=== PATIENT | female | born 1955 | race Caucasian/White ===

== ENCOUNTER 2022-05-07 13:39 | Outpatient (CLI) | payer MEDICARE, SELFPAY | END 2022-05-07 13:40 | disposition home or self-care (01) | PROVIDERS: PCP Physician Assistant Medical; Visit Provider Internal Medicine | DX: I35.1 Nonrheumatic aortic (valve) insufficiency (principal); I34.0 Nonrheumatic mitral (valve) insufficiency | CPT/HCPCS: 93306 ==

== ENCOUNTER 2022-05-23 08:02 | Outpatient (CLI) | payer MEDICARE, SELFPAY | END 2022-05-23 08:03 | disposition home or self-care (01) | LOC: NFLDREF 05-30 09:32 | PROVIDERS: PCP Physician Assistant Medical; Referring Provider Physician Assistant Medical; Visit Provider Physician Assistant Medical | DX: Z00.00 Encounter for general adult medical examination without abnormal findings (principal); E78.5 Hyperlipidemia, unspecified; E04.1 Nontoxic single thyroid nodule; D75.839 Thrombocytosis, unspecified; F41.9 Anxiety disorder, unspecified | CPT/HCPCS: 80053; 80061 ==

== ENCOUNTER 2022-05-26 10:34 | Outpatient (CLI) | payer MEDICARE, SELFPAY ==
--- NOTE | 2022-06-02 15:54 | ONC.NURNOTE ---
Hematology referral received from Monica Torres PA-C Collecting lab results as ordered by Monica Torres, and will review with Dr. Mary Leach, [facility], later this week. Ms. Villa will be scheduled after review. Ms. Villa was contacted, introduced to the hematology oncology service by [facility] and is aware of this plan.
== END 2022-05-26 10:35 | disposition home or self-care (01) ==
PROVIDERS: PCP Physician Assistant Medical; Visit Provider Physician Assistant Medical
DX: Z00.00 Encounter for general adult medical examination without abnormal findings (principal); E04.1 Nontoxic single thyroid nodule; E78.5 Hyperlipidemia, unspecified; D75.839 Thrombocytosis, unspecified; F41.9 Anxiety disorder, unspecified
CPT/HCPCS: 82306; 84443

== ENCOUNTER 2022-06-04 14:16 | Outpatient (CLI) | payer MEDICARE, SELFPAY ==
--- NOTE | 2022-06-04 14:30 | CRLHL7_ITS ---
For Patients: As a result of the Century Cures Act, medical imaging exams and procedure reports are released immediately into your electronic medical record. You may view this report before your referring provider. If you have questions, please contact your health care provider. DXA BONE MINERAL DENSITY STUDY Reason for exam: Postmenopausal. Current height (in): 67. Weight (lb): 114. Menopause age: 49. Ethnicity: White. 1. Have you had a previous hip or vertebral fracture? No. 2. Have you had any fractures during your adult life which did not result from significant trauma (e.g., auto accident)? No. 3. Did either of your parents have a hip fracture? No. 4. Do you smoke? No. 5. Have you ever taken Glucocorticoids? No. 6. Do you have rheumatoid arthritis? No. 7. Do you have secondary osteoporosis? No. 8. Do you drink 3 or more alcoholic drinks per day? No. 9. Are you being treated for osteoporosis? No. 10. Have you ever taken any of the following medications: Actonel, Evista, Fosamax, Miacalcin, Reclast, Boniva, Forteo, HRT (i.e. estrogen/hormone therapy), Protelos, Prolia, Vitamin D, Calcium, other ??? please specify. ANSWER: Yes, vitamin D, calcium. 11. Do you have any of the following medical conditions: Anorexia or bulimia, asthma or emphysema, end stage renal disease, hyperparathyroidism, any seizure disorders, cancer, inflammatory bowel diseases, hysterectomy, other ??? please specify. ANSWER: No. 12. What was your maximum height (inches)? 67. 13. Do you perform weight bearing exercise regularly? No. 14. Do you regularly consume dairy products? Yes. 15. Do you drink caffeinated beverages? Yes. 16. At what age did your period start? 14. 17. Are you premenopausal? No. 18. How many full term pregnancies have you had? 1 19. Have you ever missed your period for more than 6 months in a row (not including or menopause)? No. TECHNIQUE: Bone mineral density study was performed using the [employer]. FINDINGS: The results of the study expressed as bone mineral density (BMD) are as follows: Lumbar spine L1 to L4: BMD: 0.713 g/cm2. T-score: -3.0. Z-score: -1.1. Neck Left: BMD: 0.544 g/cm2. T-score: -2.7. Z-score: -1.1. Right: BMD: 0.574 g/cm2. T-score: -2.5. Z-score: -0.8. Total Left: BMD: 0.572 g/cm2. T-score: -3.0. Z-score: -1.7. Right: BMD: 0.639 g/cm2. T-score: -2.5. Z-score: -1.1 IMPRESSION: Osteoporosis. *Comparison exams done prior to 08/2019 were performed on different unit, [employer]. COMPARISON: Compared with scan of 04/25/2020, the bone mineral density has decreased by 0.8 percent at the spine and decreased by 1.5 percent at the hip. Ernie Solitario M.D. Diagnostic Radiologist [email or web address] VILMA/Dictated by: Ernie Solitario MD @ 06/06/2022 9:59:00 AM (Electronically Signed)
== END 2022-06-04 14:17 | disposition home or self-care (01) ==
LOC: RAD 14:17
PROVIDERS: PCP Physician Assistant Medical; Visit Provider Physician Assistant Medical
DX: Z78.0 Asymptomatic menopausal state (principal); M81.0 Age-related osteoporosis without current pathological fracture
CPT/HCPCS: 77080

== ENCOUNTER 2022-07-08 06:23 | Outpatient (CLI) | payer MEDICARE, SELFPAY ==
[2022-07-08 06:41] VITALS: BMI 17.5
[2022-07-08 06:48] VITALS: BP 117/65; PULSE 68; RESP 16; TEMP 36.2; O2SAT 98
[2022-07-08 07:18] LABS: Basophils Absolute Auto 0.04 K/uL (0.00-0.30); Basophils Percent Auto 0.7 % (0.0-3.0); Eosinophils Absolute Auto 0.11 K/uL (0.00-0.50); Eosinophils Percent Auto 1.9 % (0.0-7.0); Hematocrit 45.7 % (33.0-51.0); Hemoglobin* 15.2 gm/dL (12.0-16.0); Immature Granulocytes Abs Auto 0.18 K/uL (0.00-0.30); Immature Granulocytes Pct Auto 3.1 %; Immature Reticulocyte Fraction 8.5 % (3.0-15.9); Lymphocytes Percent Auto 19.9 % (20-44); Mean Corpuscular HGB Conc 33 gm/dL (32-36); Mean Corpuscular Hemoglobin 29 pg (26-34); Mean Corpuscular Volume 88 fL (80-100); Neutrophils Absolute Auto 3.87 K/uL (1.7-7.0); Neutrophils Percent Auto 67.4 % (42.0-72.0); Platelet Count* 546 K/uL (140-440); Red Blood Count 5.18 m/uL (4.00-5.20); Reticulocyte Hemoglobin Equivi 28.4 pg (29.0-35.0); Reticulocyte Percent 1.3 % (0.5-2.0); Reticulocytes Absolute 0.07 # (0.03-0.08); White Blood Count* 5.74 K/uL (4.50-11.00)
[2022-07-08 07:34] LABS: SARS PCR* Negative SARS-CoV-2 (Negative)
--- NOTE | 2022-07-08 07:55 | W.ANESCHARGE ---
Anesthesia Charges Start Date/Time Anesthesia Start Date: 07/08/22 Anesthesia Start Time: 07:33 Stop Date/Time Anesthesia Stop Date: 07/08/22 Anesthesia Stop Time: 07:56
[2022-07-08 07:56] VITALS: BP 111/67; PULSE 70; RESP 16; O2SAT 98
--- NOTE | 2022-07-08 07:58 | W.ANESCHARGE ---
Anesthesia Charges Start Date/Time Anesthesia Start Date: 07/08/22 Anesthesia Start Time: 07:33 Stop Date/Time Anesthesia Stop Date: 07/08/22 Anesthesia Stop Time: 07:56
[2022-07-08 08:06] VITALS: BP 116/73; PULSE 70; RESP 16; O2SAT 98
[2022-07-08 08:16] VITALS: BP 124/70; PULSE 72; RESP 16; O2SAT 100
[2022-07-08 08:39] LABS: Slide Review Reflex Yes
[2022-07-09 12:35] LABS: Slide Review Acceptable Review (Acceptable)
== END 2022-07-08 08:36 | disposition home or self-care (01) ==
LOC: OP CLINIC 06:23
PROVIDERS: PCP Physician Assistant Medical; Visit Provider Internal Medicine Hematology & Oncology
DX: D75.839 Thrombocytosis, unspecified (principal)
CPT/HCPCS: 1112; 36415; 38222; 85025; 85045; 87426; 87635; 88237; 88264; 88305; 88311; 88313; 88360; J1644; J2001; J2704

== ENCOUNTER 2022-10-14 11:00 | Outpatient (RCR) | payer MEDICARE, SELFPAY ==
--- NOTE | 2022-06-27 14:56 | ONC.NURNOTE ---
bone marrow biopsy order faxed to endo and lab.
[2022-07-02 22:39] LABS: Qual BCR Result Not Detected; Qual BCR Source Whole Blood
[2022-07-14 10:10] LABS: Chloride* 104 mmol/L (96-114)
[2022-07-14 10:11] LABS: Potassium* 4.7 mmol/L (3.6-5.1); Sodium* 139 mmol/L (135-149)
[2022-07-14 10:13] LABS: Alkaline Phosphatase* 40 U/L (40-150); Aspartate Amino Transferase* 24 U/L (12-35); Bilirubin Total* 0.9 mg/dL (0.1-1.5); Blood Urea Nitrogen* 17 mg/dL (7-30); Carbon Dioxide* 27 mmol/L (20-32); Creatinine* 0.6 mg/dL (0.5-1.5); Est. Creatinine Clearance* 44.38; Estimated Glomerular Filt Rate 98 ml/min; Glucose* 83 mg/dL (60-115)
[2022-07-14 10:14] LABS: Alanine Aminotransferase* 19 U/L (4-35); Basophils Absolute Auto 0.04 K/uL (0.00-0.30); Basophils Percent Auto 0.6 % (0.0-3.0); Calcium* 9.6 mg/dL (8.4-10.6); Eosinophils Absolute Auto 0.09 K/uL (0.00-0.50); Eosinophils Percent Auto 1.2 % (0.0-7.0); Hematocrit 47.4 % (33.0-51.0); Hemoglobin* 15.7 gm/dL (12.0-16.0); Immature Granulocytes Abs Auto 0.18 K/uL (0.00-0.30); Immature Granulocytes Pct Auto 2.5 %; Lactate Dehydrogenase* 165 U/L (120-246); Lymphocytes Percent Auto 16.6 % (20-44); Mean Corpuscular HGB Conc 33 gm/dL (32-36); Mean Corpuscular Hemoglobin 29 pg (26-34); Mean Corpuscular Volume 88 fL (80-100); Neutrophils Absolute Auto 5.13 K/uL (1.7-7.0); Neutrophils Percent Auto 71.1 % (42.0-72.0); Platelet Count* 546 K/uL (140-440); RDW Coefficient of Variation % 12.9 % (11.5-15.5); Red Blood Count 5.37 m/uL (4.00-5.20); White Blood Count* 7.22 K/uL (4.50-11.00)
[2022-07-14 10:15] LABS: Slide Review Reflex No
[2022-08-12 12:24] LABS: Basophils Absolute Auto 0.06 K/uL (0.00-0.30); Eosinophils Percent Auto 1.7 % (0.0-7.0); Hematocrit 47.7 % (33.0-51.0); Hemoglobin* 15.9 gm/dL (12.0-16.0); Immature Granulocytes Abs Auto 0.09 K/uL (0.00-0.30); Immature Granulocytes Pct Auto 1.5 %; Mean Corpuscular HGB Conc 33 gm/dL (32-36); Mean Corpuscular Hemoglobin 30 pg (26-34); Mean Corpuscular Volume 91 fL (80-100); Monocytes Percent Auto 7.6 % (0.0-11.0); Neutrophils Absolute Auto 4.18 K/uL (1.7-7.0); Neutrophils Percent Auto 69.2 % (42.0-72.0); Platelet Count* 434 K/uL (140-440); RDW Coefficient of Variation % 14.5 % (11.5-15.5); Red Blood Count 5.26 m/uL (4.00-5.20); White Blood Count* 6.04 K/uL (4.50-11.00)
[2022-08-12 12:51] LABS: Slide Review Reflex No
[2022-10-14 10:27] LABS: Basophils Absolute Auto 0.04 K/uL (0.00-0.30); Basophils Percent Auto 0.8 % (0.0-3.0); Eosinophils Absolute Auto 0.07 K/uL (0.00-0.50); Eosinophils Percent Auto 1.4 % (0.0-7.0); Hemoglobin* 15.4 gm/dL (12.0-16.0); Immature Granulocytes Abs Auto 0.07 K/uL (0.00-0.30); Immature Granulocytes Pct Auto 1.4 %; Lymphocytes Absolute Auto 0.99 K/uL (0.90-2.90); Lymphocytes Percent Auto 20.5 % (20-44); Mean Corpuscular HGB Conc 34 gm/dL (32-36); Mean Corpuscular Hemoglobin 32 pg (26-34); Mean Corpuscular Volume 95 fL (80-100); Monocytes Percent Auto 7.5 % (0.0-11.0); Neutrophils Percent Auto 68.4 % (42.0-72.0); Platelet Count* 340 K/uL (140-440); Red Blood Count 4.85 m/uL (4.00-5.20); White Blood Count* 4.83 K/uL (4.50-11.00)
[2022-10-14 10:28] LABS: Slide Review Reflex No
[2022-10-14 10:55] LABS: Albumin* 4.7 g/dL (3.3-5.0); Chloride* 103 mmol/L (96-114); Sodium* 139 mmol/L (135-149)
[2022-10-14 10:57] LABS: Creatinine* 0.6 mg/dL (0.5-1.5); Est. Creatinine Clearance* 44.38; Estimated Glomerular Filt Rate 98 ml/min
[2022-10-14 10:58] LABS: Alanine Aminotransferase* 20 U/L (4-35); Alkaline Phosphatase* 34 U/L (40-150); Aspartate Amino Transferase* 27 U/L (12-35); Bilirubin Total* 0.7 mg/dL (0.1-1.5); Blood Urea Nitrogen* 14 mg/dL (7-30); Calcium* 9.1 mg/dL (8.4-10.6); Carbon Dioxide* 27 mmol/L (20-32); Glucose* 104 mg/dL (60-115); Lactate Dehydrogenase* 135 U/L (120-246); Total Protein* 7.5 g/dL (6.0-8.3)
== END 2022-12-21 23:59 | disposition home or self-care (01) ==
LOC: CCIC 11:00
PROVIDERS: PCP Physician Assistant Medical; Referring Provider Physician Assistant Medical; Visit Provider Internal Medicine Hematology & Oncology
DX: D47.3 Essential (hemorrhagic) thrombocythemia (principal)
CPT/HCPCS: 36415; 80053; 83615; 85025; 99202; 99204; 99205; 99212; 99213; 99214; 99215

== ENCOUNTER 2023-04-13 13:00 | Outpatient (RCR) | payer MEDICARE, SELFPAY ==
[2023-01-13 10:09] LABS: Basophils Absolute Auto 0.05 K/uL (0.00-0.30); Basophils Percent Auto 0.9 % (0.0-3.0); Eosinophils Absolute Auto 0.09 K/uL (0.00-0.50); Eosinophils Percent Auto 1.6 % (0.0-7.0); Hematocrit 47.5 % (33.0-51.0); Hemoglobin* 15.7 gm/dL (12.0-16.0); Immature Granulocytes Abs Auto 0.07 K/uL (0.00-0.30); Immature Granulocytes Pct Auto 1.3 %; Lymphocytes Absolute Auto 1.23 K/uL (0.90-2.90); Lymphocytes Percent Auto 22.2 % (20-44); Mean Corpuscular HGB Conc 33 gm/dL (32-36); Mean Corpuscular Hemoglobin 33 pg (26-34); Mean Corpuscular Volume 98 fL (80-100); Monocytes Percent Auto 6.9 % (0.0-11.0); Neutrophils Absolute Auto 3.72 K/uL (1.7-7.0); Neutrophils Percent Auto 67.1 % (42.0-72.0); Platelet Count* 363 K/uL (140-440); RDW Coefficient of Variation % 11.9 % (11.5-15.5); Red Blood Count 4.83 m/uL (4.00-5.20); White Blood Count* 5.54 K/uL (4.50-11.00)
[2023-01-13 10:25] LABS: Slide Review Reflex No
[2023-01-13 10:37] LABS: Chloride* 103 mmol/L (96-114)
[2023-01-13 10:38] LABS: Albumin* 4.9 g/dL (3.3-5.0); Potassium* 4.5 mmol/L (3.6-5.1); Sodium* 140 mmol/L (135-149)
[2023-01-13 10:40] LABS: Anion Gap 9 mEq/L (7-15); Aspartate Amino Transferase* 31 U/L (12-35); Bilirubin Total* 0.7 mg/dL (0.1-1.5); Carbon Dioxide* 28 mmol/L (20-32); Creatinine* 0.6 mg/dL (0.5-1.5); Estimated Glomerular Filt Rate 98 ml/min; Total Protein* 7.9 g/dL (6.0-8.3)
[2023-01-13 10:41] LABS: Alanine Aminotransferase* 17 U/L (4-35); Alkaline Phosphatase* 33 U/L (40-150); Blood Urea Nitrogen* 12 mg/dL (7-30); Calcium* 9.6 mg/dL (8.4-10.6); Glucose* 98 mg/dL (60-115)
--- NOTE | 2023-01-16 11:51 | ONC.NURNOTE ---
Message left on patient's voicemail that Dr. amaya reviewed labs and they are stable so no change in Hydrea. Patient also told she will need albs and MD appointment in March
[2023-04-10 08:05] LABS: Basophils Absolute Auto 0.04 K/uL (0.00-0.30); Basophils Percent Auto 0.8 % (0.0-3.0); Eosinophils Absolute Auto 0.07 K/uL (0.00-0.50); Eosinophils Percent Auto 1.4 % (0.0-7.0); Hematocrit 44.9 % (33.0-51.0); Hemoglobin* 14.9 gm/dL (12.0-16.0); Immature Granulocytes Abs Auto 0.08 K/uL (0.00-0.30); Immature Granulocytes Pct Auto 1.7 %; Lymphocytes Percent Auto 28.9 % (20-44); Mean Corpuscular HGB Conc 33 gm/dL (32-36); Mean Corpuscular Hemoglobin 32 pg (26-34); Mean Corpuscular Volume 96 fL (80-100); Monocytes Percent Auto 8.3 % (0.0-11.0); Neutrophils Absolute Auto 2.85 K/uL (1.7-7.0); Neutrophils Percent Auto 58.9 % (42.0-72.0); Platelet Count* 357 K/uL (140-440); Red Blood Count 4.68 m/uL (4.00-5.20); White Blood Count* 4.84 K/uL (4.50-11.00)
[2023-04-10 08:09] LABS: Slide Review Reflex No
[2023-04-10 08:22] LABS: Chloride* 104 mmol/L (96-114); Potassium* 4.3 mmol/L (3.6-5.1); Sodium* 139 mmol/L (135-149)
[2023-04-10 08:24] LABS: Bilirubin Total* 0.9 mg/dL (0.1-1.5); Creatinine* 0.6 mg/dL (0.5-1.5); Estimated Glomerular Filt Rate 98 ml/min
[2023-04-10 08:25] LABS: Alanine Aminotransferase* 21 U/L (4-35); Alkaline Phosphatase* 32 U/L (40-150); Anion Gap 9 mEq/L (7-15); Aspartate Amino Transferase* 26 U/L (12-35); Blood Urea Nitrogen* 12 mg/dL (7-30); Calcium* 9.5 mg/dL (8.4-10.6); Carbon Dioxide* 26 mmol/L (20-32); Glucose* 103 mg/dL (60-115); Lactate Dehydrogenase* 144 U/L (120-246); Total Protein* 7.7 g/dL (6.0-8.3)
--- NOTE | 2023-04-10 10:30 | ONC.NURNOTE ---
called with lab results. will leave for md to see 04/13/23
[2023-04-15 04:29] LABS: Immunoglobulin A 191 mg/dL (68-408); Immunoglobulin G 762 mg/dL (768-1632); Immunoglobulin M 111 mg/dL (35-263)
== END 2023-07-12 23:59 | disposition home or self-care (01) ==
LOC: CCIC 13:00
PROVIDERS: PCP Physician Assistant Medical; Referring Provider Physician Assistant Medical; Visit Provider Internal Medicine Hematology & Oncology
DX: D47.3 Essential (hemorrhagic) thrombocythemia (principal); J18.9 Pneumonia, unspecified organism
CPT/HCPCS: 36415; 80053; 82784; 83615; 85025; 99213; 99214; G0463

== ENCOUNTER 2023-06-12 08:36 | Outpatient (CLI) | payer MEDICARE, SELFPAY | END 2023-06-12 08:37 | disposition home or self-care (01) | LOC: RAD 08:36 | PROVIDERS: PCP Physician Assistant Medical; Visit Provider Internal Medicine Cardiovascular Disease | DX: I35.1 Nonrheumatic aortic (valve) insufficiency (principal); I51.7 Cardiomegaly; I34.0 Nonrheumatic mitral (valve) insufficiency | CPT/HCPCS: 93306 ==

== ENCOUNTER 2023-07-23 09:06 | Outpatient (CLI) | payer MEDICARE, SELFPAY | END 2023-07-23 09:07 | disposition home or self-care (01) | LOC: NFLDREF 07-24 08:58 | PROVIDERS: PCP Physician Assistant Medical; Referring Provider Physician Assistant Medical; Visit Provider Physician Assistant Medical | DX: E78.5 Hyperlipidemia, unspecified (principal); Z79.899 Other long term (current) drug therapy; Z13.29 Encounter for screening for other suspected endocrine disorder; Z13.1 Encounter for screening for diabetes mellitus | CPT/HCPCS: 80061; 82947; 84443 ==

== ENCOUNTER 2023-09-15 13:36 | Outpatient (CLI) | payer MEDICARE, SELFPAY ==
--- NOTE | 2023-09-15 14:00 | CRLHL7_ITS ---
For Patients: As a result of the Century Cures Act, medical imaging exams and procedure reports are released immediately into your electronic medical record. You may view this report before your referring provider. If you have questions, please contact your health care provider. BILATERAL SCREENING MAMMOGRAM WITH COMPUTER-AIDED DETECTION AND TOMOSYNTHESIS TECHNIQUE: CC and MLO views were obtained. These mammographic images have been obtained using full-field digital technique. These mammographic images were interpreted with the benefit of computer-aided detection. Breast tomosynthesis was used in this interpretation. COMPARISON FILM: 08/05/22, 04/09/21, 12/27/19. FINDINGS: The breasts are extremely dense, which lowers the sensitivity of mammography. IMPRESSION: There is no radiographic evidence for malignancy. ASSESSMENT: BI-RADS Category 2: Benign RECOMMENDATION: Routine screening mammogram in 1 year. A lay language report of this examination will be provided to the patient. ERNIE THIBODEAUX M.D. Diagnostic Radiologist [email or web address] Transcribed: 11:[address]/Dictated by: Ernie Thibodeaux MD @ 09/22/2023 9:56:00 AM (Electronically Signed)
== END 2023-09-15 13:37 | disposition home or self-care (01) ==
LOC: MAMMO 13:36
PROVIDERS: PCP Physician Assistant Medical; Visit Provider Physician Assistant Medical
DX: Z12.31 Encounter for screening mammogram for malignant neoplasm of breast (principal); R92.2 Inconclusive mammogram
CPT/HCPCS: 77063; 77067

== ENCOUNTER 2024-01-04 10:00 | Outpatient (RCR) | payer MEDICARE, SELFPAY ==
[2023-07-13 08:57] LABS: Basophils Percent Auto 0.9 % (0.0-3.0); Eosinophils Percent Auto 1.6 % (0.0-7.0); Hematocrit 44.8 % (33.0-51.0); Hemoglobin* 15.1 gm/dL (12.0-16.0); Immature Granulocytes Pct Auto 1.9 %; Lymphocytes Percent Auto 23.8 % (20-44); Mean Corpuscular HGB Conc 34 gm/dL (32-36); Mean Corpuscular Hemoglobin 33 pg (26-34); Mean Corpuscular Volume 98 fL (80-100); Monocytes Percent Auto 7.9 % (0.0-11.0); Neutrophils Percent Auto 63.9 % (42.0-72.0); Platelet Count* 317 K/uL (140-440); RDW Coefficient of Variation % 12.4 % (11.5-15.5); Red Blood Count 4.58 m/uL (4.00-5.20); White Blood Count* 4.32 K/uL (4.50-11.00)
[2023-07-13 08:58] LABS: Slide Review Reflex No
[2023-07-13 09:08] LABS: Albumin* 4.7 g/dL (3.3-5.0)
[2023-07-13 09:09] LABS: Chloride* 107 mmol/L (96-114); Potassium* 4.1 mmol/L (3.6-5.1); Sodium* 139 mmol/L (135-149)
[2023-07-13 09:11] LABS: Anion Gap 2 mEq/L (7-15); Aspartate Amino Transferase* 25 U/L (12-35); Bilirubin Total* 0.7 mg/dL (0.1-1.5); Carbon Dioxide* 30 mmol/L (20-32); Creatinine* 0.6 mg/dL (0.5-1.5); Estimated Glomerular Filt Rate 98 ml/min
[2023-07-13 09:12] LABS: Alanine Aminotransferase* 18 U/L (4-35); Alkaline Phosphatase* 36 U/L (40-150); Blood Urea Nitrogen* 14 mg/dL (7-30); Calcium* 9.3 mg/dL (8.4-10.6); Glucose* 104 mg/dL (60-115); Lactate Dehydrogenase* 138 U/L (120-246); Total Protein* 7.5 g/dL (6.0-8.3)
[2023-10-06 08:24] LABS: Basophils Absolute Auto 0.04 K/uL (0.00-0.30); Basophils Percent Auto 0.8 % (0.0-3.0); Eosinophils Absolute Auto 0.07 K/uL (0.00-0.50); Eosinophils Percent Auto 1.4 % (0.0-7.0); Hematocrit 45.2 % (33.0-51.0); Hemoglobin* 15.3 gm/dL (12.0-16.0); Immature Granulocytes Abs Auto 0.09 K/uL (0.00-0.30); Immature Granulocytes Pct Auto 1.8 %; Lymphocytes Absolute Auto 1.05 K/uL (0.90-2.90); Lymphocytes Percent Auto 21.2 % (20-44); Mean Corpuscular HGB Conc 34 gm/dL (32-36); Mean Corpuscular Hemoglobin 33 pg (26-34); Mean Corpuscular Volume 97 fL (80-100); Monocytes Percent Auto 8.7 % (0.0-11.0); Neutrophils Absolute Auto 3.27 K/uL (1.7-7.0); Neutrophils Percent Auto 66.1 % (42.0-72.0); Platelet Count* 293 K/uL (140-440); Red Blood Count 4.67 m/uL (4.00-5.20); White Blood Count* 4.95 K/uL (4.50-11.00)
[2023-10-06 08:25] LABS: Slide Review Reflex No
[2023-10-06 08:36] LABS: Chloride* 107 mmol/L (96-114); Potassium* 3.7 mmol/L (3.6-5.1); Sodium* 140 mmol/L (135-149)
[2023-10-06 08:39] LABS: Alanine Aminotransferase* 20 U/L (4-35); Alkaline Phosphatase* 39 U/L (40-150); Anion Gap 11 mEq/L (7-15); Aspartate Amino Transferase* 27 U/L (12-35); Blood Urea Nitrogen* 14 mg/dL (7-30); Carbon Dioxide* 22 mmol/L (20-32); Creatinine* 0.6 mg/dL (0.5-1.5); Estimated Glomerular Filt Rate 98 ml/min; Glucose* 99 mg/dL (60-115); Total Protein* 7.7 g/dL (6.0-8.3)
[2023-10-06 08:40] LABS: Calcium* 9.6 mg/dL (8.4-10.6)
[2024-01-04 10:04] LABS: Basophils Percent Auto 1.1 % (0.0-3.0); Eosinophils Percent Auto 1.4 % (0.0-7.0); Hematocrit 46.3 % (33.0-51.0); Hemoglobin* 15.4 gm/dL (12.0-16.0); Immature Granulocytes Pct Auto 1.4 %; Mean Corpuscular HGB Conc 33 gm/dL (32-36); Mean Corpuscular Hemoglobin 33 pg (26-34); Mean Corpuscular Volume 99 fL (80-100); Monocytes Percent Auto 8.1 % (0.0-11.0); Platelet Count* 288 K/uL (140-440); RDW Coefficient of Variation % 12.2 % (11.5-15.5); Red Blood Count 4.68 m/uL (4.00-5.20); White Blood Count* 4.44 K/uL (4.50-11.00)
[2024-01-04 10:08] LABS: Slide Review Reflex No
[2024-01-04 10:18] LABS: Albumin* 5.2 g/dL (3.3-5.0); Chloride* 100 mmol/L (96-114); Potassium* 3.9 mmol/L (3.6-5.1); Sodium* 138 mmol/L (135-149)
[2024-01-04 10:20] LABS: Creatinine* 0.6 mg/dL (0.5-1.5); Estimated Glomerular Filt Rate 97 ml/min
[2024-01-04 10:21] LABS: Alanine Aminotransferase* 17 U/L (4-35); Alkaline Phosphatase* 37 U/L (40-150); Anion Gap 10 mEq/L (7-15); Aspartate Amino Transferase* 24 U/L (12-35); Bilirubin Total* 0.9 mg/dL (0.1-1.5); Blood Urea Nitrogen* 11 mg/dL (7-30); Carbon Dioxide* 28 mmol/L (20-32); Glucose* 105 mg/dL (60-115); Lactate Dehydrogenase* 144 U/L (120-246); Total Protein* 7.8 g/dL (6.0-8.3)
[2024-01-04 10:22] LABS: Calcium* 9.6 mg/dL (8.4-10.6)
== END 2024-01-09 23:59 | disposition home or self-care (01) ==
LOC: CCIC 10:00
PROVIDERS: PCP Physician Assistant Medical; Referring Provider Physician Assistant Medical; Visit Provider Internal Medicine Hematology & Oncology
DX: D47.3 Essential (hemorrhagic) thrombocythemia (principal); Z15.89 Genetic susceptibility to other disease
CPT/HCPCS: 36415; 80053; 83615; 85025; 99213; 99214; G0463

== ENCOUNTER 2024-06-13 08:57 | Outpatient (CLI) | payer MEDICARE, SELFPAY | END 2024-06-13 08:58 | disposition home or self-care (01) | LOC: NFLDREF 06-14 06:36 | PROVIDERS: PCP Physician Assistant Medical; Referring Provider Physician Assistant Medical; Visit Provider Physician Assistant Medical | DX: E78.5 Hyperlipidemia, unspecified (principal); E55.9 Vitamin D deficiency, unspecified; M81.0 Age-related osteoporosis without current pathological fracture | CPT/HCPCS: 80061; 82306 ==

== ENCOUNTER 2024-06-23 14:38 | Outpatient (CLI) | payer MEDICARE, SELFPAY ==
--- NOTE | 2024-06-23 15:00 | CRLHL7_ITS ---
For Patients: As a result of the Century Cures Act, medical imaging exams and procedure reports are released immediately into your electronic medical record. You may view this report before your referring provider. If you have questions, please contact your health care provider. XR DXA Bone Mineral Density (BMD) Reason for exam: Encounter for general adult medical examination. Current height (in): 67. Weight (lb): 114. Menopause age: 49. Ethnicity: White. 1. Have you had a previous hip or vertebral fracture? No. 2. Have you had any fractures during your adult life which did not result from significant trauma (e.g., auto accident)? No. 3. Did either of your parents have a hip fracture? No. 4. Do you smoke? No. 5. Have you ever taken Glucocorticoids? No. 6. Do you have rheumatoid arthritis? No. 7. Do you have secondary osteoporosis? No. 8. Do you drink 3 or more alcoholic drinks per day? No. 9. Are you being treated for osteoporosis? No. 10. Have you ever taken any of the following medications: Actonel, Evista, Fosamax, Miacalcin, Reclast, Boniva, Forteo, HRT (i.e., estrogen/hormone therapy), Protelos, Prolia, Vitamin D, Calcium, other ??? please specify. ANSWER: Yes, vitamin D and calcium. 11. Do you have any of the following medical conditions: Anorexia or bulimia, asthma or emphysema, end stage renal disease, hyperparathyroidism, any seizure disorders, cancer, inflammatory bowel diseases, hysterectomy, other ??? please specify. ANSWER: No. 12. What was your maximum height (inches)? 67. 13. Do you perform weight bearing exercise regularly? No. 14. Do you regularly consume dairy products? Yes. 15. Do you drink caffeinated beverages? Yes. 16. At what age did your period start? 14. 17. Are you premenopausal? No. 18. How many full-term pregnancies have you had? 1. 19. Have you ever missed your period for more than 6 months in a row (not including or menopause)? No. TECHNIQUE: Bone mineral density study was performed using the [employer]. FINDINGS: The results of the study expressed as bone mineral density (BMD) are as follows: Lumbar spine L1 to L4: BMD: 0.704 g/cm2. T-score: -3.1. Z-score: -1.0 Neck Left: BMD: 0.531 g/cm2. T-score: -2.9. Z-score: -1.1 Right: BMD: 0.554 g/cm2. T-score: -2.7. Z-score: -0.9 Total Left: BMD: 0.586 g/cm2. T-score: -2.9. Z-score: -1.4 Right: BMD: 0.650 g/cm2. T-score: -2.4. Z-score: -0.9 IMPRESSION: Osteoporosis. *Comparison exams done prior to 08/2019 were performed on different unit, [employer]. COMPARISON: Compared with scan of 06/04/2022, the bone mineral density has decreased by 1.2 percent at the spine and increased by 2.0 percent at the hip. Compared with scan of 04/25/2020, the bone mineral density has decreased by 0.8 percent at the spine and decreased by 1.5 percent at the hip. Ernie Solitario M.D. Diagnostic Radiologist [email or web address] BRETT/[email or web address] [email or web address]/Dictated by: Ernie Solitario MD @ 06/24/2024 11:31:00 AM (Electronically Signed)
== END 2024-06-23 14:39 | disposition home or self-care (01) ==
LOC: RAD 14:39
PROVIDERS: PCP Physician Assistant Medical; Visit Provider Physician Assistant Medical
DX: Z13.820 Encounter for screening for osteoporosis (principal); M81.0 Age-related osteoporosis without current pathological fracture; Z78.0 Asymptomatic menopausal state
CPT/HCPCS: 77080

== ENCOUNTER 2024-07-04 12:00 | Outpatient (RCR) | payer MEDICARE, SELFPAY ==
[2024-04-04 10:24] LABS: Albumin* 4.9 g/dL (3.3-5.0); Chloride* 103 mmol/L (96-114)
[2024-04-04 10:25] LABS: Potassium* 4.7 mmol/L (3.6-5.1); Sodium* 139 mmol/L (135-149)
[2024-04-04 10:27] LABS: Anion Gap 7 mEq/L (7-15); Aspartate Amino Transferase* 24 U/L (12-35); Bilirubin Total* 0.8 mg/dL (0.1-1.5); Carbon Dioxide* 29 mmol/L (20-32); Creatinine* 0.6 mg/dL (0.5-1.5); Estimated Glomerular Filt Rate 97 ml/min; Total Protein* 7.5 g/dL (6.0-8.3)
[2024-04-04 10:28] LABS: Alanine Aminotransferase* 19 U/L (4-35); Alkaline Phosphatase* 32 U/L (40-150); Blood Urea Nitrogen* 11 mg/dL (7-30); Calcium* 9.7 mg/dL (8.4-10.6); Glucose* 103 mg/dL (60-115)
[2024-04-04 11:50] LABS: Hematocrit 46.3 % (33.0-51.0); Hemoglobin* 15.5 gm/dL (12.0-16.0); Immature Granulocytes Abs Auto 0.10 K/uL (0.00-0.30); Immature Granulocytes Pct Auto 1.9 %; Lymphocytes Absolute Auto 1.21 K/uL (0.90-2.90); Mean Corpuscular HGB Conc 34 gm/dL (32-36); Mean Corpuscular Hemoglobin 33 pg (26-34); Mean Corpuscular Volume 98 fL (80-100); RDW Coefficient of Variation % 12.5 % (11.5-15.5); Red Blood Count 4.73 m/uL (4.00-5.20); White Blood Count* 5.34 K/uL (4.50-11.00)
[2024-04-04 11:52] LABS: Slide Review Reflex No
--- NOTE | 2024-04-06 15:27 | ONC.NURNOTE ---
Message left on VM to call for lab results noted as stable by Dr Carranza no dose adjustments- continues on hydrea 500 mg/day next lab/ in June
[2024-07-04 12:14] LABS: Hematocrit 45.3 % (33.0-51.0); Hemoglobin* 15.4 gm/dL (12.0-16.0); Immature Granulocytes Abs Auto 0.08 K/uL (0.00-0.30); Immature Granulocytes Pct Auto 1.3 %; Mean Corpuscular HGB Conc 34 gm/dL (32-36); Mean Corpuscular Hemoglobin 34 pg (26-34); Mean Corpuscular Volume 99 fL (80-100); RDW Coefficient of Variation % 12.2 % (11.5-15.5); Red Blood Count 4.60 m/uL (4.00-5.20); White Blood Count* 6.23 K/uL (4.50-11.00)
[2024-07-04 12:20] LABS: Lymphocytes Absolute Auto 1.00 K/uL (0.90-2.90); Slide Review Reflex No
[2024-07-04 12:36] LABS: Albumin* 5.1 g/dL (3.3-5.0); Chloride* 101 mmol/L (96-114)
[2024-07-04 12:37] LABS: Potassium* 4.0 mmol/L (3.6-5.1); Sodium* 138 mmol/L (135-149)
[2024-07-04 12:39] LABS: Alanine Aminotransferase* 20 U/L (4-35); Alkaline Phosphatase* 38 U/L (40-150); Anion Gap 11 mEq/L (7-15); Aspartate Amino Transferase* 26 U/L (12-35); Bilirubin Total* 0.8 mg/dL (0.1-1.5); Blood Urea Nitrogen* 14 mg/dL (7-30); Carbon Dioxide* 26 mmol/L (20-32); Creatinine* 0.7 mg/dL (0.5-1.5); Estimated Glomerular Filt Rate 94 ml/min; Total Protein* 7.7 g/dL (6.0-8.3)
[2024-07-04 12:40] LABS: Calcium* 9.5 mg/dL (8.4-10.6); Glucose* 106 mg/dL (60-115)
== END 2024-10-01 23:59 | disposition home or self-care (01) ==
LOC: CCIC 12:00
PROVIDERS: PCP Physician Assistant Medical; Referring Provider Physician Assistant Medical; Visit Provider Internal Medicine Hematology & Oncology
DX: D47.3 Essential (hemorrhagic) thrombocythemia (principal); D75.839 Thrombocytosis, unspecified; Z79.84 Long term (current) use of oral hypoglycemic drugs; Z15.89 Genetic susceptibility to other disease
CPT/HCPCS: 36415; 80053; 83615; 85025; 99213; 99214; G0463

== ENCOUNTER 2024-07-06 14:16 | Outpatient (CLI) | payer MEDICARE, SELFPAY | END 2024-07-06 14:17 | disposition home or self-care (01) | PROVIDERS: PCP Physician Assistant Medical; Visit Provider Physician Assistant | DX: R10.32 Left lower quadrant pain (principal); R10.31 Right lower quadrant pain; N39.0 Urinary tract infection, site not specified | CPT/HCPCS: 80076; 83690; 87086 ==

== ENCOUNTER 2024-08-21 10:47 | Outpatient (CLI) | payer MEDICARE, SELFPAY | END 2024-08-21 10:48 | disposition home or self-care (01) | LOC: NFLDREF 16:18 | PROVIDERS: PCP Physician Assistant Medical; Referring Provider Physician Assistant Medical | DX: N30.00 Acute cystitis without hematuria (principal) | CPT/HCPCS: 87086 ==

== ENCOUNTER 2024-08-29 07:51 | Emergency (ER) | payer MEDICARE, SELFPAY ==
[2024-08-29 07:57] VITALS: BP 128/65; PULSE 96; RESP 16; TEMP 36.2; O2SAT 97; BMI 17.5
--- NOTE | 2024-08-29 08:14 | ED_ITS ---
HPI - Abdominal Pain General Chief Complaint: Abdominal Pain Stated Complaint: Diverticulitis Time Seen by Provider: 08/29/24 08:00 History of Present Illness HPI narrative: This 68-year-old female comes in reporting lower mid abdominal pain that began yesterday. She states that it is constant but has some crampy components to it also. She reports a history of recurrent diverticulitis and states that it seems to feel similar. She arrives here with normal vital signs. She did go to urgent care a couple times in the last month and was diagnosed with urinary tract infection. A month ago it was apparently a legitimate infection but a couple weeks ago she was started on antibiotic but culture results showed no sign of infection so she discontinued. She does not report any symptoms of dysuria. She does have some mucus-like stools but no report of blood in the toilet. She has not had any fevers. Related Data Home Medications ?Medication ?Instructions ?Recorded ?Confirmed ascorbic acid (vitamin C) 500 mg mg PO QDAY 06/24/22 0 08/21/24 capsule cholecalciferol (vitamin D3) 50 50 mcg PO QDAY 3 08/29/24 mcg (2,000 unit) capsule ibuprofen 200 mg capsule 400 mg PO Q8H PRN 06/24/22 0 08/21/24 calcium carbonate (Calcium 600) 600 mg PO BID 07/14/22 08/29/24 aspirin 81 mg tablet,delayed 81 mg PO QDAY 10/14/22 release Previous Rx's ?Medication ?Instructions ?Recorded atorvastatin 20 mg tablet 20 mg PO QHS #90 tabs sertraline 100 mg tablet 100 mg PO DAILY #90 tabs hydroxyurea 500 mg capsule (Hydrea) 500 mg PO QDAY #12 0 caps 07/04/24 amoxicillin 875 mg-potassium 1 tab PO BID #14 tabs 12/15 clavulanate 125 mg tablet ketorolac 10 mg tablet 10 mg PO TID 5 days #15 tabs 08/29/24 Allergies Allergy/AdvReac Type Severity Reaction Status Date / Time No Known Allergies Allergy Unknown Verified 08/21/24 10:48 Review of Systems Status of ROS Reports: 10 or more systems reviewed and unremarkable except as noted in History and below Narrative Constitutional: No fevers, no weight gain or loss. Eyes: No discharge. No vision changes. HENT: No congestion, no sore throat, no ear pain. Cardiovascular: No chest pain, no palpitations. Respiratory: No shortness of breath, no wheezes, no cough. Gastrointestinal: No vomiting, no diarrhea. Abdominal pain as described above. Genitourinary: No dysuria, no hematuria. Musculoskeletal: Normal range of motion. Skin: No rashes, no pruritis. Neurological: No dizziness, weakness, sensory change, speech change. Endo/Heme/Allergies: No bruising or bleeding. No polydipsia. Pysch: no suicidality, no anxiety, no insomnia. All other systems reviewed and are negative. [facility] Medical History Community acquired pneumonia (~02/09/23) ?J18.9 - Pneumonia, unspecified organism (ICD-10) Acute renal insufficiency (~02/09/23) ?N28.9 - Disorder of kidney and ureter, unspecified (ICD-10) Diverticulitis ?K57.92 - Diverticulitis of intestine, part unspecified, without perforation or abscess without bleeding (ICD-10) Surgical History Hx of inguinal hernia surgery ?Z98.890 - Other specified postprocedural states (ICD-10) ?Z87.19 - Personal history of other diseases of the digestive system (ICD-10) History of colonoscopy ?Z98.890 - Other specified postprocedural states (ICD-10) Family History Father Colon cancer Prostate cancer Skin cancer Bladder cancer Mother Skin cancer [place] cell carcinoma Brother Coronary artery disease Son Prostate cancer, Onset Age: 50 Social History Narrative: Former smoker. QUIT over 40 years ago . 2 Adult children ( hx of stroke)- Ubaldo. What is your current living situation?: I presently have a place to live Problems where you live: no known problems In the past 12 months, utilities in danger of being shut off: no In past 12 months, lack of transportation kept you from medical appts, meetings, work, or getting things needed for daily living: no In the past 12 mos, have been you worried that your food would run out before you had money to buy more?: never true In the past 12 mos, the food you bought just didn't last and you didn't have money to buy more?: never true Smoking Status: Former smoker How often does anyone, including family, friends and others, physically hurt you : never How often does anyone, including family, friends and others, insult or talk down to you: never How often does anyone, including family, friends and others, threaten you with harm: never How often does anyone, including family, friends and others, scream or curse at you: never Exam Narrative: Exam Narrative: Constitutional: Well-developed, well-nourished, no acute distress. HEENT: Normocephalic, atraumatic. Neck: Normal range of motion. Nontender. Supple. Heart: Regular. No murmurs. Normal rate. Intact distal pulses. Lungs: Clear to auscultation. No chest discomfort. No wheezes, rhonchi, or rales. Abdomen: Normal bowel sounds. Tenderness in the mid lower abdomen. Mild rebound tenderness. Genitalia: Deferred. Back: No midline tenderness. Normal range of motion. Extremities: Normal range of motion. No injury. Skin: Intact. No rash. Warm. No erythema or pallor. Neurologic: No altered sensation. No weakness. Alert and oriented. Psychiatric: No suicidality. No anxiety or depression. No insomnia. Nursing notes and vitals signs are reviewed. Const: Vital Signs, click to edit/add: Vital Signs - 24 hr 08/29/24 07:57 Temperature 97.2 F L Pulse Rate [Pulse Oximeter] 96 Respiratory Rate 16 Blood Pressure [Ri ght Upper Arm] 128/65 Pulse Oximetry 97 Oxygen Delivery Me thod Room Air Course Vital Signs Vital signs: Initial Vital Signs Temperature 97.2 F L 08/29/24 07:57 Temperature Source Temporal Artery Scan 08/29/24 07:57 Pulse Rate 96 08/29/24 07:57 Respiratory Rate 16 08/29/24 07:57 Blood Pressure 128/65 08/29/24 07:57 Blood Pressure Mean 86 08/29/24 07:57 Blood Pressure Position Sitting 08/29/24 07:57 Pulse Oximetry 97 08/29/24 07:57 Oxygen Delivery Method Room Air 08/29/24 07:57 Vital Signs Temperature 97.2 F L 08/29/24 07:57 Pulse Rate 96 08/29/24 07:57 Respiratory Rate 16 08/29/24 07:57 Blood Pressure 128/65 08/29/24 07:57 Pulse Oximetry 97 08/29/24 07:57 Oxygen Delivery Method Room Air 08/29/24 07:57 Temperature 97.2 F L 08/29/24 07:57 Pulse Rate 96 08/29/24 07:57 Respiratory Rate 16 08/29/24 07:57 Blood Pressure 128/65 08/29/24 07:57 Pulse Oximetry 97 08/29/24 07:57 Oxygen Delivery Method Room Air 08/29/24 07:57 MDM - Abdominal Pain MDM Narrative Medical decision making narrative: This patient has a history of diverticulitis that has been confirmed in the past with CT imaging. She has had recurrent symptoms since then and feels like it is recurrence of diverticulitis today. She does arrive with normal vital signs and her exam is reassuring. I explained that there are lots of conditions that can cause abdominal pain and CT imaging is our best test to evaluate however repeated scans are a significant amount of x-ray exposure. This patient is not showing signs and symptoms of any kind of complication typical of an acute abdomen. In a process of shared decision-making she declined CT imaging at this time. She states that she will come back if symptoms are persistent or worsening. She did receive a prescription for Augmentin and Toradol. Discharge Plan Discharge Clinical Impression: Diverticulitis Patient Disposition: Home, Self-Care Condition: Stable Additional Instructions: Take medication as prescribed. Follow up with MD or return if symptoms are persistent or worsening. Prescriptions: New ketorolac 10 mg tablet 10 mg PO TID 5 Days Qty: 15 0RF amoxicillin-pot clavulanate 875-125 mg tablet 1 tab PO BID Qty: 14 0RF No Action cholecalciferol (vitamin D3) 50 mcg (2,000 unit) capsule 50 mcg PO QDAY ibuprofen 200 mg capsule 400 mg PO Q8H PRN ascorbic acid (vitamin C) 500 mg capsule PO QDAY calcium carbonate [Calcium 600] 600 mg calcium (1,500 mg) tablet 600 mg PO BID aspirin 81 mg tablet,delayed release (DR/EC) 81 mg PO QDAY hydroxyurea [Hydrea] 500 mg capsule 500 mg PO QDAY Qty: 120 3RF atorvastatin 20 mg tablet 20 mg PO QHS Qty: 90 3RF sertraline 100 mg tablet 100 mg PO DAILY Qty: 90 3RF Follow Up/Referrals: Monica Torres PA-C [Primary Care Provider, Family Practice] Stand Alone Forms: [facility] Info Instructions
== END 2024-08-29 08:30 | disposition home or self-care (01) ==
PROVIDERS: Emergency Provider Emergency Medicine Emergency Medical Services; PCP Physician Assistant Medical
DX: K57.32 Diverticulitis of large intestine without perforation or abscess without bleeding (principal)
CPT/HCPCS: 99283; 99284

== ENCOUNTER 2024-09-29 12:29 | Outpatient (CLI) | payer MEDICARE, SELFPAY | END 2024-09-29 12:30 | disposition home or self-care (01) | LOC: NFLDREF 10-03 17:55 | PROVIDERS: PCP Physician Assistant Medical; Referring Provider Physician Assistant Medical; Visit Provider Nurse Practitioner Family | DX: R10.2 Pelvic and perineal pain (principal) | CPT/HCPCS: 87086 ==

== ENCOUNTER 2024-10-13 10:24 | Outpatient (CLI) | payer MEDICARE, SELFPAY ==
--- NOTE | 2024-10-13 11:00 | CRLHL7_ITS ---
For Patients: As a result of the Century Cures Act, medical imaging exams and procedure reports are released immediately into your electronic medical record. You may view this report before your referring provider. If you have questions, please contact your health care provider. INDICATION: Lower abdominal pain with previous diverticulitis. TECHNIQUE: CT scan abdomen pelvis. Contrast: Intravenous 54 cc Isovue. COMPARISON: CT abdomen and pelvis 10/17/2020. FINDINGS: Lung bases: Clear minimal scar right middle lobe. Liver: Small cavernous hemangioma no change superior right hepatic lobe. No biliary dilatation. Gallbladder: No calcified stones. Spleen: Borderline enlarged. 12.9 cm AP. No change. Pancreas and adrenal glands: Unremarkable. Lymph nodes: No adenopathy. Gastrointestinal tract: Normal caliber. No significant wall thickening. Pelvis: Urinary bladder: Unremarkable. Uterus: Unremarkable. Sigmoid colon : Diverticulosis no inflammatory changes for diverticulitis. No free fluid. Skeletal: Hip unremarkable. Stable incidental vertebral body hemangioma L4. IMPRESSION: 1. Unremarkable for signs of acute diverticulitis or other acute or suspicious imaging abnormality. 2. Borderline splenic enlargement similar to previous. Please note that all CT scans at this facility use dose modulation, iterative reconstruction, and/or weight-based dosing when appropriate to reduce radiation dose to as low as reasonably achievable. Dictated by Jaron Santillan MD @ 10/18/2024 9:26:24 AM (Electronically Signed)
== END 2024-10-13 10:25 | disposition home or self-care (01) ==
LOC: CT 10:25
PROVIDERS: PCP Physician Assistant Medical; Visit Provider Physician Assistant Medical
DX: R10.9 Unspecified abdominal pain (principal); K57.92 Diverticulitis of intestine, part unspecified, without perforation or abscess without bleeding
CPT/HCPCS: 74177; Q9967

== ENCOUNTER 2024-10-28 09:45 | Outpatient (CLI) | payer MEDICARE, SELFPAY ==
--- NOTE | 2024-10-28 10:15 | CRLHL7_ITS ---
For Patients: As a result of the Century Cures Act, medical imaging exams and procedure reports are released immediately into your electronic medical record. You may view this report before your referring provider. If you have questions, please contact your health care provider. INDICATION: BILATERAL SCREENING MAMMIOGRAM, ASYMPTOMATIC 69 Y/O FEMALE COMPARISON: 09/15/2023, 08/05/2022, 04/09/2021 TECHNIQUE: Digital mammogram in CC and MLO projections including computer-aided detection (CAD) and tomosynthesis. BREAST COMPOSITION: The breasts are extremely dense, which lowers the sensitivity of mammography. FINDINGS: No suspicious findings. ASSESSMENT: BI-RADS 1 Negative RECOMMENDATION: Annual screening mammogram. A lay language report of this examination will be provided to the patient. Dictated by: Ernie Solitario MD @ 10/31/2024 09:48:45 (Electronically Signed)
== END 2024-10-28 09:46 | disposition home or self-care (01) ==
LOC: MAMMO 09:46
PROVIDERS: PCP Physician Assistant Medical; Visit Provider Physician Assistant Medical
DX: Z12.31 Encounter for screening mammogram for malignant neoplasm of breast (principal); R92.343 Mammographic extreme density, bilateral breasts
CPT/HCPCS: 77063; 77067

== ENCOUNTER 2025-03-16 19:15 | Emergency (ER) | payer MEDICARE, SELFPAY ==
[2025-03-16] VITALS (37 sets, daily range): BP systolic 91–131; BP diastolic 58–97; PULSE 82–154; RESP 12–22; TEMP 36.7; O2SAT 88–99; BMI 17.5
--- OUTSIDE RECORDS SUMMARY | 2025-03-16 19:17 | XMS_ITS | Clinical Summary ---
Author Organization [employer] [facility] Address [address] [place] [address] Care Team Providers Care Electrical Cad Technician Name Role Phone Monica Torres PA-C Primary Care Provider [phone] Allergies No known active allergies Medications MedicationSigDispense QuantityRefillsLast FilledStart DateEnd DateStatus atorvastatin (LIPITOR) 20 mg tablet Take 20 mg by mouth at bedtime.Active sertraline (ZOLOFT) 100 mg tablet Take 100 mg by mouth once daily.Active hydroxyurea (HYDREA) 500 mg capsule Take 500 mg by mouth once daily.Active dicyclomine (BENTYL) 10 mg capsule Indications:Diarrhea, unspecified typeTake 1 Capsule (10 mg) by mouth three times daily before meals. 300 Capsule 1105Active Encounters DateTypeDepartmentCare NbwwJstfqelgotu19/29/2025 1:00 PM CDTOrders Only [facility] [address] [place] [address] <No scans attached>12/19/20246465Hddecb48/25/2025 11:00 AM CDTOffice Visit [facility] [address] [place] [address] Philip Valiente MD Consult (Abdominal pain has had diverticulitis in the past, wondering about irritable bowel more diarrhea than constipation)12/15/2024Travelfrom Last 3 Months Social History Tobacco UseTypesPacks/DayYears UsedDateSmoking Tobacco: Never AssessedSocial ConnectionsAnswerDate RecordedFrequency of Communication with Friends and Family Not on file03/04/2022CommentsUnknownSex and Gender InformationValueDate RecordedSex Assigned at BirthNot on fileLegal MuzOybrnw12/14/2013 6:10 AM LEADERSHIP DEVELOPMENT MANAGER Gender IdentityNot on fileSexual OrientationNot on file Last Filed Vital Signs Vital SignReadingTime TakenCommentsBlood Mhkoymbs693/6109 11:15 AM CDT Mrebk924112/15/2024 11:15 AM CDTTemperature--Respiratory Rate--Oxygen Saturation 98%12/15/2024 11:15 AM CDTInhaled Oxygen Concentration--Yznqvc16 kg (112 lb 6.4 oz)12/15/2024 11:15 AM CDTHeight--Body Mass Index-- Plan of Treatment Health MaintenanceDue DateLast DoneCommentsTetanus rkigyvx1810/15/1965Depression screening for age 12+1966BMI (ht and wt on same day) for age 18+1972 Hepatitis C screening for age 18-7910/15/1972Zoster (shingles) series for age 50+ (1 of 2)1973Colonoscopy through age Lipids for age 45-75 10/16/1999Mammogram for age 40-Pneumococcal series for age 50+ (1 of 1 - PCV)2004RSV vaccine for adults or (1 - Risk 50-74 years 1- dose series)2004DEXA/DXA scan for age 65+10/16/2019Medicare Wellness for age 65+10/16/2019COVID-19 vaccine series (3 - Pfizer risk series)07/21/2020 06/23/2020, 06/02/2020Influenza Vaccine (#1)2024Hepatitis B series for 19+ Aged OutNo longer eligible based on patient's age to complete this topic Procedures Procedure NamePriorityDate/TimeAssociated DiagnosisCommentsCLOSTRIDIOIDES DIFFICILE TOXIN NSXRibtzel96/29/2025 11:15 AM CDT Diarrhea, unspecified type PANCREATIC ELASTASE CZTRDKybldkl55/29/2025 11:15 AM CDT Diarrhea, unspecified type CALPROTECTIN BNUZCPsxftjx97/29/2025 11:15 AM CDT Diarrhea, unspecified type CRYPTOSPORIDIUM GIARDIA RAPID MMABHCJGbyovud54/29/2025 11:15 AM CDT Diarrhea, unspecified type CELIAC CASCADE RCOYNSqmxees36/25/2025 11:44 AM CDT Diarrhea, unspecified type from Last 3 Months Results * CRYPTOSPORIDIUM GIARDIA RAPID ANTIGEN (12/19/2024 11:15 AM CDT)ComponentValue Ref RangeTest MethodAnalysis TimePerformed AtPathologist SignatureGIARDIA AND CRYPTOSPORIDIUM ANTIGEN PANELSEE NOTE12/20/2024 2:30 PM [facility] SystemsTIn[facility] Comment: ??GIARDIA AG, EIA, STOOL ?Micro Number: ?[id number] ??Test Status: ? Final ??Specimen Source: ?? Stool ??Specimen Quality: ??Adequate ??Giardia Result 1: ??Not Detected ??Reference Range: ?? Not Detected ? NOTE: Due to intermittent shedding, one negative ? sample does not necessarily rule out the presence ? of a parasitic infection. GIARDIA AND CRYPTOSPORIDIUM ANTIGEN PANELSEE NOTE12/20/2024 2:30 PM Mesh SystemsTInfarct Reduction Technologies DIAGNOSTICSComment: ??CRYPTOSPORIDIUM ANTIGEN, EIA ?Micro Number: ?[id number] ??Test Status: ? Final ??Specimen Source: ?? Stool ??Specimen Quality: ??Adequate ??Cryptosporidium: ?? Not Detected ??Reference Range: ?? Not Detected ? NOTE: Due to intermittent shedding, one negative ? sample does not necessarily rule out the presence ? of a parasitic infection. Specimen (Source)Anatomical Location / LateralityCollection Method / Volume Collection TimeReceived TimeStoolSTOOL SPECIMEN / UnknownNon-Blood / Unknown 12/19/2024 11:15 AM CDT12/19/2024 11:15 AM CDT Narrative Authorizing ProviderResult TypeResult StatusPhilip Valiente MDMICROBIOLOGY Final ResultPerforming OrganizationAddressCity/State/ZIP CodePhone Number [facility] [place] [address] [place] [address], [place] [phone] * CALPROTECTIN FECAL (12/19/2024 11:15 AM CDT)ComponentValueRef RangeTest Method Analysis TimePerformed AtPathologist SignatureCALPROTECTIN, TWROL69lqw/g 12/24/2024 1:49 AM CDTQUEST DIAGNOSTICSComment: ?Reference Range: <50 Normal ?50-120 ??Borderline >120 Elevated Calprotectin in Crohn's disease and ulcerative colitis can be five to several thousand times above the reference population (50 mcg/g or less). Levels are usually 50 mcg/g or less in healthy patients and with irritable bowel syndrome. Repeat testing in 4-6 weeks is suggested for borderline values. Specimen (Source)Anatomical Location / LateralityCollection Method / Volume Collection TimeReceived TimeStoolSTOOL SPECIMEN / UnknownNon-Blood / Unknown 12/19/2024 11:15 AM CDT12/19/2024 11:15 AM CDT Narrative Authorizing ProviderResult TypeResult Lynda Valiente MDSEND OUTSFinal ResultPerforming OrganizationAddressty/State/ZIP CodePhone Number [facility] [address] [place] [address], * PANCREATIC ELASTASE FECAL (12/19/2024 11:15 AM CDT)ComponentValueRef RangeTest MethodAnalysis TimePerformed AtPathologist SignaturePANCREATIC ELASTASE 1>800 >200 mcg/g1 1:16 AM CDTQUEST DIAGNOSTICSComment: E-1 mcg/g feces ?Interpretation <100 Severe exocrine pancreatic ? insufficiency ?? 100-200 ? Mild to moderate exocrine ? pancreatic insufficiency >200 Normal Specimen (Source)Anatomical Location / LateralityCollection Method / Volume Collection TimeReceived TimeStoolSTOOL SPECIMEN / UnknownNon-Blood / Unknown 12/19/2024 11:15 AM CDT12/19/2024 11:15 AM CDT Narrative Authorizing ProviderResult TypeResult StatusMarquinton Valiente MDMICROBIOLOGY Final ResultPerforming OrganizationAddressCity/State/ZIP CodePhone Number [employer] [address] [address], * CLOSTRIDIOIDES DIFFICILE TOXIN PCR (12/19/2024 11:15 AM CDT)ComponentValueRef RangeTest MethodAnalysis TimePerformed AtPathologist SignatureCLOSTRIDIUM DIFFICILE TOXIN/GDH W/REFL TO PCRSEE NOTE12/20/2024 3:09 PM CDTQUEST DIAGNOSTICSComment: ??CLOSTRIDIUM DIFFICILE TOXIN/GDH W/REFL TO PCR ?Micro Number: ?[id number] ??Test Status: ? Final ??Specimen Source: ?? Stool ??Specimen Quality: ??Adequate ??GDH Antigen: ? Not Detected ??Toxin A and B: ? Not Detected ??COMMENT: ? No toxigenic C. difficile detected ? For additional information, please refer to ? [email or web address].SABIA/faq/JND867 ? (This link is being provided for ? informational/educational purposes only.) Specimen (Source)Anatomical Location / LateralityCollection Method / Volume Collection TimeReceived TimeStoolSTOOL SPECIMEN / UnknownNon-Blood / Unknown 12/19/2024 11:15 AM CDT12/19/2024 11:15 AM CDT Narrative Authorizing ProviderResult TypeResult StatusPhilip Valiente MDMICROBIOLOGY Final ResultPerforming OrganizationAddressty/State/ZIP CodePhone Number [facility] [address] [place] [address], * CELIAC CASCADE PANEL (12/15/2024 11:44 AM CDT)ComponentValueRef RangeTest MethodAnalysis TimePerformed AtPathologist SignatureIMMUNOGLOBULIN [id number] - 320 mg/dL12/17/2024 2:44 AM Mesh SystemsTQUEST DIAGNOSTICSCELIAC DISEASE COMPREHENSIVE PANEL INTERPRETATIONSEE NOTE12/17/2024 2:44 AM CDTQUEST DIAGNOSTICSComment: No serological evidence of celiac disease. tTG IgA may normalize in individuals with celiac disease who maintain a gluten-free diet. Consider HLA DQ2 and DQ8 testing to rule out celiac disease. Celiac disease is extremely rare in the absence of DQ2 or DQ8. TISSUE TRANSGLUTAMINASE AB, IGA<1.0U/mL12/17/2024 2:44 AM CDTQUEST DIAGNOSTICS Comment: Value ?Interpretation ----- ? <15.0 Antibody not detected > or = 15.0 Antibody detected Specimen (Source)Anatomical Location / LateralityCollection Method / Volume Collection TimeReceived TimeBloodBLOOD SPECIMEN / UnknownQuest Collect / Unknown 12/15/2024 11:44 AM CDT12/15/2024 11:44 AM CDT Narrative Authorizing ProviderResult TypeResult Lynda Valiente MDSEND OUTSFinal ResultPerforming OrganizationAddressTol[facility]/State/ZIP CodePhone Number [facility] [address] [address], [place] [phone] from Last 3 Months Insurance Care Teams Team MemberRelationshipSpecialtyStart DateEnd Date Monica Torres PA-C [address] [place] [address] PCP - GeneralEmergency Medicine05/03/21
--- NOTE | 2025-03-16 19:39 | CRLHL7_ITS ---
For Patients: As a result of the Century Cures Act, medical imaging exams and procedure reports are released immediately into your electronic medical record. You may view this report before your referring provider. If you have questions, please contact your health care provider. INDICATION: Shortness of breath TECHNIQUE: X-ray chest 2 frontal views COMPARISON: X-ray chest 02/11/2023 FINDINGS: Lungs and pleura: The lungs are hyperinflated. There is no focal airspace opacity, pleural effusion or pneumothorax. Heart/mediastinum: The heart size is normal. There are calcifications of the thoracic aorta. Osseous structures: There are degenerative changes within the spine. IMPRESSION: Hyperinflated lungs. No acute pulmonary disease. Dictated by Levi Jang MD @ 03/16/2025 8:10:53 PM (Electronically Signed)
--- NOTE | 2025-03-16 19:41 | ED.ARRPALP ---
HPI - Arrhythmia/Palpitations General Chief Complaint: Arrhythmia/Palpitations <Pedrito Miner MD - Last Filed: 03/16/25 21:27> Stated Complaint: chest/abdomen pain <Pedrito Miner MD - Last Filed: 03/16/25 21:27> Time Seen by Provider: 03/16/25 19:22 <Pedrito Miner MD - Last Filed: 03/16/25 21:27> History of Present Illness HPI narrative: Patient is a 69-year-old woman with a history of aortic regurgitation and mitral regurgitation who presents with 36 hours of palpitations. She has had no chest pain. She has been mildly short of breath. She states symptoms have become more progressive throughout the day today. Patient has no previous history of atrial fibrillation. She tells me that she has elevated platelets in takes hydroxyurea <Pedrito Miner MD - Last Filed: 03/16/25 21:27> Related Data Home Medications: Home Medications ?Medication ?Instructions ?Recorded ?Confirmed ascorbic acid (vitamin C) 500 mg mg PO QDAY 06/24/22 01/04/25 capsule cholecalciferol (vitamin D3) 50 50 mcg PO QDAY 06/24/22 01/04/25 mcg (2,000 unit) capsule ibuprofen 200 mg capsule 400 mg PO Q8H PRN 06/24/22 01/04/25 calcium carbonate (Calcium 600) 600 mg PO BID 07/14/22 01/04/25 aspirin 81 mg tablet,delayed 81 mg PO QDAY 10/14/22 01/04/25 release calcium polycarbophil 625 mg 1,250 mg PO QDAY 01/04/25 01/04/25 tablet (FiberCon) Previous Rx's ?Medication ?Instructions ?Recorded atorvastatin 20 mg tablet 20 mg PO QHS #90 tabs 06/15/24 sertraline 100 mg tablet 100 mg PO DAILY #90 tabs 06/15/24 hydroxyurea 500 mg capsule (Hydrea) 500 mg PO QDAY #120 caps 01/04/25 apixaban 5 mg tablet (Eliquis) 5 mg PO BID #60 tabs 03/16/25 metoprolol tartrate 25 mg tablet 25 mg PO BID #60 tabs 03/16/25 <Pedrito Miner MD - Last Filed: 03/16/25 21:27> Allergies/Adverse Reactions: Allergies Allergy/AdvReac Type Severity Reaction Status Date / Time No Known Allergies Allergy Unknown Verified 03/16/25 19:30 <Pedrito Miner MD - Last Filed: 03/16/25 21:27> [facility] Medical History: Medical History Community acquired pneumonia (~02/09/23) ?J18.9 - Pneumonia, unspecified organism (ICD-10) Acute renal insufficiency (~02/09/23) ?N28.9 - Disorder of kidney and ureter, unspecified (ICD-10) Diverticulitis ?K57.92 - Diverticulitis of intestine, part unspecified, without perforation or abscess without bleeding (ICD-10) <Pedrito Miner MD - Last Filed: 03/16/25 21:27> Surgical History: Surgical History Hx of inguinal hernia surgery ?Z98.890 - Other specified postprocedural states (ICD-10) ?Z87.19 - Personal history of other diseases of the digestive system (ICD-10) History of colonoscopy ?Z98.890 - Other specified postprocedural states (ICD-10) <Pedrito Miner MD - Last Filed: 03/16/25 21:27> Family History: Family History Father Colon cancer Prostate cancer Skin cancer Bladder cancer Mother Skin cancer Murdo cell carcinoma Brother Coronary artery disease Son Prostate cancer, Onset Age: 50 <Pedrito Miner MD - Last Filed: 03/16/25 21:27> Social History: Social History Narrative: Former smoker. QUIT over 40 years ago . 2 Adult children ( hx of stroke)- Ubaldo. What is your current living situation?: I presently have a place to live Problems where you live: no known problems In the past 12 months, utilities in danger of being shut off: no In past 12 months, lack of transportation kept you from medical appts, meetings, work, or getting things needed for daily living: no In the past 12 mos, have been you worried that your food would run out before you had money to buy more?: never true In the past 12 mos, the food you bought just didn't last and you didn't have money to buy more?: never true Smoking Status: Former smoker Do you use any of these nicotine containing products: None Non-prescribed substance use: denies use How often does anyone, including family, friends and others, physically hurt you: never How often does anyone, including family, friends and others, insult or talk down to you: never How often does anyone, including family, friends and others, threaten you with harm: never How often does anyone, including family, friends and others, scream or curse at you: never service: No <Pedrito Miner MD - Last Filed: 03/16/25 21:27> Exam Narrative: Exam Narrative: EXAM GENERAL: Patient appears comfortable and well. EYES: No scleral icterus. ENT: Tympanic membranes and oropharynx normal. THYROID: no thyroid nodules or thyromegaly. LYMPH: No supraclavicular or cervical lymphadenopathy. SKIN: Visible skin seen during exam normal or with benign process only. EXT: No dependent lower extremity pedal edema. HEART: Initially irregular rhythm with tachycardia noted. LUNGS: Clear to auscultation bilaterally with no crackles or wheezes. ABD: Soft, non tender, non distended. PSYCH: Good eye contact, speech is not pressured. <Pedrito Miner MD - Last Filed: 03/16/25 21:27> Const: Vital Signs, click to edit/add: Vital Signs - 24 hr 03/16/25 19:28 03/16/25 20:00 03/16/25 20:01 Temperature 98.0 F Pulse Rate 125 H 122 H Pulse Rate [Right Pulse Oximeter] 154 H Respiratory Rate 20 18 12 Blood Pressure 91/64 107/68 Blood Pressure [Le ft Upper Arm] 98/60 Pulse Oximetry 99 94 94 Oxygen Delivery Me thod Room Air 03/16/25 20:02 03/16/25 20:11 03/16/25 20:15 Temperature Pulse Rate 114 H 110 H 113 H Pulse Rate [Right Pulse Oximeter] Respiratory Rate 18 22 16 Blood Pressure 102/74 Blood Pressure [Le ft Upper Arm] Pulse Oximetry 95 96 97 Oxygen Delivery Me thod 03/16/25 20:23 03/16/25 20:30 03/16/25 20:31 Temperature Pulse Rate 131 H 133 H 125 H Pulse Rate [Right Pulse Oximeter] Respiratory Rate 20 21 19 Blood Pressure 116/73 107/68 Blood Pressure [Le ft Upper Arm] Pulse Oximetry 96 97 97 Oxygen Delivery Me thod 03/16/25 20:36 03/16/25 20:41 03/16/25 20:45 Temperature Pulse Rate 137 H 129 H 110 H Pulse Rate [Right Pulse Oximeter] Respiratory Rate 14 14 19 Blood Pressure 99/82 111/72 Blood Pressure [Le ft Upper Arm] Pulse Oximetry 97 97 94 Oxygen Delivery Me thod 03/16/25 20:46 03/16/25 20:51 03/16/25 20:56 Temperature Pulse Rate 144 H 96 101 H Pulse Rate [Right Pulse Oximeter] Respiratory Rate 21 14 19 Blood Pressure 131/97 H 114/70 109/70 Blood Pressure [Le ft Upper Arm] Pulse Oximetry 88 99 99 Oxygen Delivery Me thod <Pedrito Miner MD - Last Filed: 03/16/25 21:27> Vital Signs, click to edit/add: Vital Signs - 24 hr 03/16/25 19:28 03/16/25 20:00 03/16/25 20:01 Temperature 98.0 F Pulse Rate 125 H 122 H Pulse Rate [Right Pulse Oximeter] 154 H Respiratory Rate 20 18 12 Blood Pressure 91/64 107/68 Blood Pressure [Le ft Upper Arm] 98/60 Pulse Oximetry 99 94 94 Oxygen Delivery Me thod Room Air 03/16/25 20:02 03/16/25 20:11 03/16/25 20:15 Temperature Pulse Rate 114 H 110 H 113 H Pulse Rate [Right Pulse Oximeter] Respiratory Rate 18 22 16 Blood Pressure 102/74 Blood Pressure [Le ft Upper Arm] Pulse Oximetry 95 96 97 Oxygen Delivery Me thod 03/16/25 20:23 03/16/25 20:30 03/16/25 20:31 Temperature Pulse Rate 131 H 133 H 125 H Pulse Rate [Right Pulse Oximeter] Respiratory Rate 20 21 19 Blood Pressure 116/73 107/68 Blood Pressure [Le ft Upper Arm] Pulse Oximetry 96 97 97 Oxygen Delivery Me thod 03/16/25 20:36 03/16/25 20:41 03/16/25 20:45 Temperature Pulse Rate 137 H 129 H 110 H Pulse Rate [Right Pulse Oximeter] Respiratory Rate 14 14 19 Blood Pressure 99/82 111/72 Blood Pressure [Le ft Upper Arm] Pulse Oximetry 97 97 94 Oxygen Delivery Me thod 03/16/25 20:46 03/16/25 20:51 03/16/25 20:56 Temperature Pulse Rate 144 H 96 101 H Pulse Rate [Right Pulse Oximeter] Respiratory Rate 21 14 19 Blood Pressure 131/97 H 114/70 109/70 Blood Pressure [Le ft Upper Arm] Pulse Oximetry 88 99 99 Oxygen Delivery Me thod <Tariq Powers MD - Last Filed: 03/16/25 22:52> Course Course ED Course: Patient is a 69-year-old woman who presented with atrial fibrillation with RVR. She did receive 10 mg of diltiazem with limited effect. She had a somewhat unstable blood pressure and as result and after obtaining informed consent we did provide a electric cardioversion x2 in 200 joules. He is now will return to sinus rhythm after the initial shock did not produce a sustained normal sinus rhythm. Her troponin both troponin I and high-sensitivity troponin both elevated. I did give her a dose of 5 mg of Eliquis and 25 mg of metoprolol. I discussed the case with Cardiology they do recommend a repeat troponin I at approximately 2:00 a.m.. Case signed out to my colleague. <Pedrito Miner MD - Last Filed: 03/16/25 21:27> Reevaluation(s) Time of Reevaluation #1: 22:51 <Tariq Powers MD - Last Filed: 03/16/25 22:52> Reevaluation #1: Repeat troponin is 0.462 which is essentially unchanged from initial. Per Dr. Rafi garcia, cardiology recommends discharge on metoprolol and Eliquis with outpatient follow-up. Patient remains in sinus rhythm and stable for discharge <Tariq Powers MD - Last Filed: 03/16/25 22:52> Vital Signs Vital signs: Initial Vital Signs Temperature 98.0 F 03/16/25 19:28 Temperature Source Temporal Artery Scan 03/16/25 19:28 Pulse Rate 154 H 03/16/25 19:28 Respiratory Rate 20 03/16/25 19:28 Blood Pressure 98/60 03/16/25 19:28 Blood Pressure Mean 72 03/16/25 19:28 Blood Pressure Position Supine 03/16/25 19:28 Pulse Oximetry 99 03/16/25 19:28 Oxygen Delivery Method Room Air 03/16/25 19:28 Vital Signs Temperature 98.0 F 03/16/25 19:28 Pulse Rate 154 H 03/16/25 19:28 Respiratory Rate 20 03/16/25 19:28 Blood Pressure 98/60 03/16/25 19:28 Pulse Oximetry 99 03/16/25 19:28 Oxygen Delivery Method Room Air 03/16/25 19:28 Temperature 98.0 F 03/16/25 19:28 Pulse Rate 101 H 03/16/25 20:56 Respiratory Rate 19 03/16/25 20:56 Blood Pressure 109/70 03/16/25 20:56 Pulse Oximetry 99 03/16/25 20:56 Oxygen Delivery Method Room Air 03/16/25 19:28 <Pedrito Miner MD - Last Filed: 03/16/25 21:27> Initial Vital Signs Temperature 98.0 F 03/16/25 19:28 Temperature Source Temporal Artery Scan 03/16/25 19:28 Pulse Rate 154 H 03/16/25 19:28 Respiratory Rate 20 03/16/25 19:28 Blood Pressure 98/60 03/16/25 19:28 Blood Pressure Mean 72 03/16/25 19:28 Blood Pressure Position Supine 03/16/25 19:28 Pulse Oximetry 99 03/16/25 19:28 Oxygen Delivery Method Room Air 03/16/25 19:28 Vital Signs Temperature 98.0 F 03/16/25 19:28 Pulse Rate 154 H 03/16/25 19:28 Respiratory Rate 20 03/16/25 19:28 Blood Pressure 98/60 03/16/25 19:28 Pulse Oximetry 99 03/16/25 19:28 Oxygen Delivery Method Room Air 03/16/25 19:28 Temperature 98.0 F 03/16/25 19:28 Pulse Rate 101 H 03/16/25 20:56 Respiratory Rate 19 03/16/25 20:56 Blood Pressure 109/70 03/16/25 20:56 Pulse Oximetry 99 03/16/25 20:56 Oxygen Delivery Method Room Air 03/16/25 19:28 <Tariq Powers MD - Last Filed: 03/16/25 22:52> Medications Administered Medications: Discontinued Medications Generic Name Dose Route Start Last Admin Trade Name Freq PRN Reason Stop Dose Admin Apixaban 5 mg 03/16/25 20:08 03/16/25 20:53 Apixaban 5 Mg Tablet PO 03/16/25 20:09 5 mg ONCE ONE Administration Diltiazem HCl 10 mg 03/16/25 19:50 03/16/25 19:50 Diltiazem 5 Mg/Ml Inj IVP 03/16/25 19:51 10 mg ONCE ONE Administration Etomidate 6 mg 03/16/25 20:14 03/16/25 20:42 Etomidate 2 Mg/Ml Inj IVP 03/16/25 20:15 6 mg ONCE ONE Administration Metoprolol Tartrate 25 mg 03/16/25 21:20 03/16/25 21:30 Metoprolol Tartrate 25 Mg Tablet PO 03/16/25 21:21 25 mg ONCE ONE Administration <Pedrito Miner MD - Last Filed: 03/16/25 21:27> Discontinued Medications Generic Name Dose Route Start Last Admin Trade Name Freq PRN Reason Stop Dose Admin Apixaban 5 mg 03/16/25 20:08 03/16/25 20:53 Apixaban 5 Mg Tablet PO 03/16/25 20:09 5 mg ONCE ONE Administration Diltiazem HCl 10 mg 03/16/25 19:50 03/16/25 19:50 Diltiazem 5 Mg/Ml Inj IVP 03/16/25 19:51 10 mg ONCE ONE Administration Etomidate 6 mg 03/16/25 20:14 03/16/25 20:42 Etomidate 2 Mg/Ml Inj IVP 03/16/25 20:15 6 mg ONCE ONE Administration Metoprolol Tartrate 25 mg 03/16/25 21:20 03/16/25 21:30 Metoprolol Tartrate 25 Mg Tablet PO 03/16/25 21:21 25 mg ONCE ONE Administration <Tariq Powers MD - Last Filed: 03/16/25 22:52> MDM - Arrhythmia/Palpitations Lab Data Labs: Lab Results 03/16/25 03/16/25 Range/Units 19:35 19:46 WBC 9.46 (4.50-11.00) K/uL RBC 4.68 (4.00-5.20) m/uL Hgb 15.7 (12.0-16.0) gm/dL Hct 46.2 (33.0-51.0) % MCV 99 (80-100) fL MCH 34 (26-34) pg MCHC 34 (32-36) gm/dL RDW Coeff of Contreras 12.4 (11.5-15.5) % Plt Count 359 (140-440) K/uL Neut % (Auto) 76.2 H (42.0-72.0) % Lymph % (Auto) 11.5 L (20-44) % Austin % (Auto) 10.7 (0.0-11.0) % Eos % (Auto) 0.2 (0.0-7.0) % Baso % (Auto) 0.4 (0.0-3.0) % Neut # (Auto) 7.20 H (1.7-7.0) K/uL Lymph # (Auto) 1.10 (0.90-2.90) K/uL Austin # (Auto) 1.00 H (0.00-0.90) K/UL Eos # (Auto) 0.02 (0.00-0.50) K/uL Baso # (Auto) 0.04 (0.00-0.30) K/uL Abs Immat Gran (auto) 0.09 (0.00-0.30) K/uL Imm/Tot Granulo (auto) 1.0 % Sodium 132 L (135-149) mmol/L Potassium 3.7 (3.6-5.1) mmol/L Chloride 102 (96-114) mmol/L Carbon Dioxide 17 L (20-32) mmol/L Anion Gap 13 (7-15) mEq/L BUN 10 (7-30) mg/dL Creatinine 0.6 (0.5-1.5) mg/dL Estimated Creat Clear 41.98 Estimated GFR 97 ml/min Glucose 150 H (60-115) mg/dL Calcium 9.2 (8.4-10.6) mg/dL Total Bilirubin 2.0 H (0.1-1.5) mg/dL AST 22 (12-35) U/L ALT 17 (4-35) U/L Alkaline Phosphatase 43 (40-150) U/L Troponin I 0.47 H* (0.01-0.04) ng/mL POC Troponin I High Sensi 457.5 H* (2.9-13.0) pg/mL NT-Pro-B Natriuret Pep 7960 H (See Note) pg/mL Total Protein 7.3 (6.0-8.3) g/dL Albumin 4.6 (3.3-5.0) g/dL <Pedrito Miner MD - Last Filed: 03/16/25 21:27> Lab Results 03/16/25 03/16/25 Range/Units 19:35 19:46 WBC 9.46 (4.50-11.00) K/uL RBC 4.68 (4.00-5.20) m/uL Hgb 15.7 (12.0-16.0) gm/dL Hct 46.2 (33.0-51.0) % MCV 99 (80-100) fL MCH 34 (26-34) pg MCHC 34 (32-36) gm/dL RDW Coeff of Contreras 12.4 (11.5-15.5) % Plt Count 359 (140-440) K/uL Neut % (Auto) 76.2 H (42.0-72.0) % Lymph % (Auto) 11.5 L (20-44) % Austin % (Auto) 10.7 (0.0-11.0) % Eos % (Auto) 0.2 (0.0-7.0) % Baso % (Auto) 0.4 (0.0-3.0) % Neut # (Auto) 7.20 H (1.7-7.0) K/uL Lymph # (Auto) 1.10 (0.90-2.90) K/uL Austin # (Auto) 1.00 H (0.00-0.90) K/UL Eos # (Auto) 0.02 (0.00-0.50) K/uL Baso # (Auto) 0.04 (0.00-0.30) K/uL Abs Immat Gran (auto) 0.09 (0.00-0.30) K/uL Imm/Tot Granulo (auto) 1.0 % Sodium 132 L (135-149) mmol/L Potassium 3.7 (3.6-5.1) mmol/L Chloride 102 (96-114) mmol/L Carbon Dioxide 17 L (20-32) mmol/L Anion Gap 13 (7-15) mEq/L BUN 10 (7-30) mg/dL Creatinine 0.6 (0.5-1.5) mg/dL Estimated Creat Clear 41.98 Estimated GFR 97 ml/min Glucose 150 H (60-115) mg/dL Calcium 9.2 (8.4-10.6) mg/dL Total Bilirubin 2.0 H (0.1-1.5) mg/dL AST 22 (12-35) U/L ALT 17 (4-35) U/L Alkaline Phosphatase 43 (40-150) U/L Troponin I 0.47 H* (0.01-0.04) ng/mL POC Troponin I High Sensi 457.5 H* (2.9-13.0) pg/mL NT-Pro-B Natriuret Pep 7960 H (See Note) pg/mL Total Protein 7.3 (6.0-8.3) g/dL Albumin 4.6 (3.3-5.0) g/dL <Tariq Powers MD - Last Filed: 03/16/25 22:52> Discharge Plan Discharge Clinical Impression: Atrial fibrillation with rapid ventricular response <Pedrito Miner MD - Last Filed: 03/16/25 21:27> Patient Disposition: Home, Self-Care <Pedrito Miner MD - Last Filed: 03/16/25 21:27> Condition: Stable <Pedrito Miner MD - Last Filed: 03/16/25 21:27> Instructions: A-fib (Atrial Fibrillation) (ED) <Pedrito Miner MD - Last Filed: 03/16/25 21:27> Additional Instructions: Eliquis as directed Metoprolol as directed Follow-up with your doctor next week to schedule echocardiogram Follow-up with Cardiology Return if symptoms recur <Pedrito Miner MD - Last Filed: 03/16/25 21:27> Activity Level: No Restrictions <Pedrito Miner MD - Last Filed: 03/16/25 21:27> No Restrictions <Tariq Powers MD - Last Filed: 03/16/25 22:52> Discharge Diet: Regular <Pedrito Miner MD - Last Filed: 03/16/25 21:27> Regular <Tariq Powers MD - Last Filed: 03/16/25 22:52> Prescriptions: New Eliquis 5 mg tablet 5 mg PO BID Qty: 60 2RF metoprolol tartrate 25 mg tablet 25 mg PO BID Qty: 60 2RF No Action cholecalciferol (vitamin D3) 50 mcg (2,000 unit) capsule 50 mcg PO QDAY ibuprofen 200 mg capsule 400 mg PO Q8H PRN ascorbic acid (vitamin C) 500 mg capsule PO QDAY calcium carbonate [Calcium 600] 600 mg calcium (1,500 mg) tablet 600 mg PO BID calcium polycarbophil [FiberCon] 625 mg tablet 1,250 mg PO QDAY hydroxyurea [Hydrea] 500 mg capsule 500 mg PO QDAY Qty: 120 3RF aspirin 81 mg tablet,delayed release (DR/EC) 81 mg PO QDAY atorvastatin 20 mg tablet 20 mg PO QHS Qty: 90 3RF sertraline 100 mg tablet 100 mg PO DAILY Qty: 90 3RF <Pedrito Miner MD - Last Filed: 03/16/25 21:27> Follow Up/Referrals: Monica Torres PA-C [Primary Care Provider, Family Practice] <Pedrito Miner MD - Last Filed: 03/16/25 21:27> Stand Alone Forms: MyHealth Info Instructions <Pedrito Minre MD - Last Filed: 03/16/25 21:27> Procedures Additional Procedures Procedure name: Deep sedation <Tariq Powers MD - Last Filed: 03/16/25 22:52> Pre procedure diagnosis: Atrial fibrillation with RVR <Tariq Powers MD - Last Filed: 03/16/25 22:52> Post procedure diagnosis: Same <Tariq Powers MD - Last Filed: 03/16/25 22:52> Written consent by: patient <Tariq Powers MD - Last Filed: 03/16/25 22:52> Site marking: not applicable <Tariq Powers MD - Last Filed: 03/16/25 22:52> Verification/time out: correct patient and correct procedure <Tariq Powers MD - Last Filed: 03/16/25 22:52> Estimated blood loss (if any): none <Tariq Powers MD - Last Filed: 03/16/25 22:52> Conclusion: patient tolerated procedure <Tariq Powers MD - Last Filed: 03/16/25 22:52> Additional comments: I provided sedation for electrical cardioversion. Verified last oral intake for this emergent procedure. Patient on media monitor, end-tidal monitor, pulse oximetry with emergency airway supplies immediately available. Etomidate 6 mg IV was given with adequate sedation for procedure. Patient recovered without difficulty, lowest oxygen saturation reached was 97%, no interventions needed to maintain saturations. Patient tolerated sedation well. <Tariq Powers MD - Last Filed: 03/16/25 22:52>
[2025-03-16 19:49] LABS: Hematocrit* 46.2 % (33.0-51.0); Hemoglobin* 15.7 gm/dL (12.0-16.0); Immature Granulocytes Abs Auto 0.09 K/uL (0.00-0.30); Immature Granulocytes Pct Auto 1.0 %; Mean Corpuscular HGB Conc 34 gm/dL (32-36); Mean Corpuscular Hemoglobin 34 pg (26-34); Mean Corpuscular Volume 99 fL (80-100); RDW Coefficient of Variation % 12.4 % (11.5-15.5); Red Blood Count* 4.68 m/uL (4.00-5.20); White Blood Count* 9.46 K/uL (4.50-11.00)
[2025-03-16] MEDS: dilTIAZem 5 MG/ML inj 10 MG IVP (19:50)
[2025-03-16 20:00] LABS: Chloride* 102 mmol/L (96-114)
[2025-03-16 20:01] LABS: Albumin* 4.6 g/dL (3.3-5.0); Potassium* 3.7 mmol/L (3.6-5.1); Sodium* 132 mmol/L (135-149)
[2025-03-16 20:03] LABS: Alanine Aminotransferase* 17 U/L (4-35); Anion Gap 13 mEq/L (7-15); Aspartate Amino Transferase* 22 U/L (12-35); Blood Urea Nitrogen* 10 mg/dL (7-30); Carbon Dioxide* 17 mmol/L (20-32); Creatinine* 0.6 mg/dL (0.5-1.5); Est. Creatinine Clearance* 41.98; Estimated Glomerular Filt Rate 97 ml/min; Lymphocytes Absolute Auto 1.10 K/uL (0.90-2.90); Slide Review Reflex No
[2025-03-16 20:04] LABS: Alkaline Phosphatase* 43 U/L (40-150); Bilirubin Total* 2.0 mg/dL (0.1-1.5); Calcium* 9.2 mg/dL (8.4-10.6); Glucose* 150 mg/dL (60-115); Total Protein* 7.3 g/dL (6.0-8.3)
[2025-03-16 20:25] LABS: NT Pro B Type NatriureticPept* 7960 pg/mL (See Note)
[2025-03-16] MEDS: ETOMIDATE 2 MG/ML inj 6 MG IVP (20:42)
[2025-03-16] MEDS: APIXABAN 5 MG TABLET PO (20:53)
[2025-03-16] MEDS: METOPROLOL TARTRATE 25 MG TABLET PO (21:30)
== END 2025-03-16 23:11 | disposition home or self-care (01) ==
PROVIDERS: Emergency Provider Internal Medicine; PCP Physician Assistant Medical
DX: I48.91 Unspecified atrial fibrillation (principal); I08.0 Rheumatic disorders of both mitral and aortic valves; D69.6 Thrombocytopenia, unspecified; Z79.899 Other long term (current) drug therapy
CPT/HCPCS: 36415; 71045; 80053; 83880; 84484; 85025; 92960; 93005; 96374; 96375; 99284; 99285; 99291; A9270

== ENCOUNTER 2025-03-17 19:55 | Emergency (ER) | payer MEDICARE, SELFPAY ==
--- OUTSIDE RECORDS SUMMARY | 2024-10-07 03:08 | XMS_ITS | Continuity of Care Document ---
Author Organization [facility] Address [address] [address] [place] [address] Phone Care Team Providers Care Manager Security Name Role Phone Cameron Carrillo MD Unavailable Unavailabl e Allergies, Adverse Reactions, Alerts Substance Reaction Status Criticality No Known Allergies Active No Inform ation Medications Medication Instructions Dosage Effective Dates (start - stop) Status Comments Levsin/SL 0.125 mg sublingual tablet take 1 tablet by sublingual route every for 6 hours as needed for abdominal pain 1 tablet - Active sertraline 100 mg tablet take 1 tablet by oral route every day 100 MG - Active atorvastatin 20 mg tablet take 1 tablet by oral route every day 20 MG - Active Procedures Procedure Date Colonoscopy Flex; W/remov Les- 19 Colonoscopy Flex; W/bx 1/mx Level Iv-surg Path Gross/micro 19 Office Cons New/estab Mod Colonoscopy Flex; Dx (sep Pro) 14 Advance Directives Directive Yes / No Effective Date File Name No Information Encounters Encounter Description Practice Location Reason(s) For Visit Diagnoses Date Provider Providers Copied on Encounter [facility], [address] [address], [place], [id number], [place] tel:[phone] [facility] No Information 5 Aidan Barnes. [address] [facility], [place], [place], [id number] , [place]. tel: [phone] [facility], [address] [address], [place], [id number], [place] tel:[phone] [facility] Internal and external hemorrhoids without complicationColorec eldon polyp detected on colonoscopyDivertic ulosis of colonDiarrhea, unspecifiedFamily history of malignant neoplasm of digestive organsBenign neoplasm of sigmoid colonDvrtclos of lg int w/o perforation or abscess w/o bleedingBenign neoplasm of sigmoid colonFamily history of malignant neoplasm of digestive organs 9 Leo Colnuga. [address] [facility], [facility] [address], [place], [id number] , [place]. tel: [phone] Referring Provider: Referral Self, USE FOR SELF REFERRALS. Office Cons New/estab Mod [facility], [address] [address], [place], [id number], [place] tel:[phone] [facility] GI Symptoms or Concerns (chief complaint) Lower abdominal painFamily history of colon cancer in fatherDiarrhea, unspecified type 9 Leo Colunga. [address] [facility], [facility] [address], [place], [id number] , [place]. tel:[phone] Referring Provider: Monica BRIDGES, [address] [place], [address]. tel:[phone] [facility], [address] [address], [place], [id number], [place] tel:[phone] [facility] Family history of cancer of gastrointestinal tractDiverticulosis of colonHemorrhoidsDiv erticulosis Of ColonFamily Hx GI Tract CancerHemorrhoids 4 Mo Wilson. [address] [facility], [facility] [address], [place], [place], [id number] , [place]. tel: [phone] [facility], [address] [address], [place], [place], [id number], [place] tel:[phone] [facility] No Information 4 Link MD Wilson. [address] [facility], [address], [place], [place], [id number] , [place]. tel: [phone] Family History Family Member Type Diagnosis Age At Onset Son Problem (finding) Alive and well Brother Problem (finding) Alive and well Father Problem (finding) Daughter Problem (finding) Alive and well Mother Problem (finding) Alive and well Payers Payer name Insurance type Covered libertarian ID Authoriza tion(s) No Information Social History Type Description Quantity Date Captured Comments Sex Female Smoking Status No Information Chief Complaint And Reason For Visit No Information Reason For Referral Reason For Referral No Information History Of Present Illness Encounter Date Complaint History Of Prese nt Illness GI Symptoms or Concerns Francine Villa is a 62-year-old woman with a history of diverticulosis and recurrent diverticulitis, who presents for recurrent chronic lower abdominal pain and cramping with frequent loose stools that has been recently worse except for the last couple of weeks, which has actually been improved. She is sent for these symptoms by her primary care provider, Monica Torres.Francine states that for a few years she has had a few episodes of recurrent diverticulitis. Many years ago, she had a CT scan to document this, but she has had other times where she was treated for diverticulitis by symptoms and felt better with antibiotics. The last episode was in the fall of 2017. She also describes more frequent chronic cramping in her lower abdomen, which usually triggers the feeling to move her bowels and usually gets better, although she often has feeling of incomplete evacuation. She moves her bowels about 3 to 5 times per day, which has actually been her pattern for most of her julio Functional Status Date Functional Assessmen t No Information Instructions Date Instruction Additional Infor juan manuel Diverticulosis/Diverticulitis Re lated to Internal and external hemorrhoids without complication Colon Polyps Related to Inter nal and external hemorrhoids without complication Hemorrhoids Related to Inter nal and external hemorrhoids without complication Colon Cancer Prevention Related to Internal and external hemorrhoids without complication High Fiber Diet Related to Inter nal and external hemorrhoids without complication High Fiber Diet Related to Lower abdominal pain Colon Cancer Prevention Related to Family history of cancer of gastrointestinal tract Diverticulosis/Diverticulitis Re lated to Family history of cancer of gastrointestinal tract Hemorrhoids Related to Famil y history of cancer of gastrointestinal tract High Fiber Diet Related to Famil y history of cancer of gastrointestinal tract Assessments Type Assessment Date No Information Patient Care Teams Name Effective Dates (start - stop) Status Members No Information
--- OUTSIDE RECORDS SUMMARY | 2024-10-07 03:08 | XMS_ITS | Continuity of Care Document ---
Author Organization [facility] Address [address] [address] [place] [address] Phone Care Team Providers Care Washroom Cleaner Name Role Phone Cameron Carrillo MD Unavailable [...] Diagnoses Date Provider Providers Copied on Encounter [facility], [address] [address], [place], [id number], [place] tel:[phone] [facility] No Information 5 Aidan Barnes. [address] [facility], [place], [place], [id number] , [place]. tel: [phone] [facility] [place], [address] [address], [place], [id number], [place] tel:[phone] [facility] Internal and external hemorrhoids without complicationColorec eldon polyp detected on colonoscopyDivertic ulosis of colonDiarrhea, unspecifiedFamily history of malignant neoplasm of digestive organsBenign neoplasm of sigmoid colonDvrtclos of lg int w/o perforation or abscess w/o bleedingBenign neoplasm of sigmoid colonFamily history of malignant neoplasm of digestive organs 9 Leo Colunga. [address] [facility], [facility] [address], [place], [id number] , [place]. tel: [phone] Referring Provider: Referral Self, USE FOR SELF REFERRALS. Office Cons New/estab Mod [facility] [place], [address] [address], [place], [id number], [place] tel:[phone] [facility] GI Symptoms or Concerns (chief complaint) Lower abdominal painFamily history of colon cancer in fatherDiarrhea, unspecified type 9 Leo Colunga. [address] [facility], [facility] [address], [place], [id number] , [place]. [phone] Referring Provider: Monica BRIDGES, [address] [place], [address]. tel:[phone] [facility] [place], [address] [address], [place], [id number], [place] tel:[phone] [facility] Family history of cancer of gastrointestinal tractDiverticulosis of colonHemorrhoidsDiv erticulosis Of ColonFamily Hx GI Tract CancerHemorrhoids 4 Mo Wilson. [address] [facility], [facility] [address], [place], [place], [id number] , [place]. tel: [phone] [facility] [place], [address] [address], [place], [place], [address], [place] tel:[phone] [facility] No Information 4 Link MD Wilson. [address] [facility], [address], [place], [place], [id number] , [place]. tel: [phone] Family History Family Member Type Diagnosis Age [...]
[2025-03-17] VITALS (7 sets, daily range): BP systolic 104–130; BP diastolic 58–81; PULSE 77–123; RESP 16–21; TEMP 36.6; O2SAT 94–97; BMI 18.3
--- OUTSIDE RECORDS SUMMARY | 2025-03-17 19:57 | XMS_ITS | Clinical Summary ---
Author Organization [facility] Address [address] [place] [id number] Care Team Providers Care Floor Layer Name Role Phone Monica Torres PA-C Primary Care Provider [phone] Allergies No known active allergies Medications MedicationSigDispense [...] before meals. 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 Gender IdentityNot on fileSexual OrientationNot on file Last Filed Vital Signs Vital SignReadingTime TakenCommentsBlood Mbjllcdd386/61012/15/2024 11:15 AM CDT Xwogv585012/15/2024 11:15 AM CDTTemperature--Respiratory Rate--Oxygen Saturation 98%12/15/2024 11:15 AM CDTInhaled Oxygen Concentration--Zskuzi05 kg (112 lb 6.4 oz)12/15/2024 11:15 AM CDTHeight--Body Mass Index-- Plan of Treatment Health MaintenanceDue DateLast DoneCommentsTetanus kocwdyb4810/15/1965Depression screening for age 12+1966BMI (ht and wt on same day) for age 18+1972 Hepatitis C screening for age 18-Zoster (shingles) series for age 50+ (1 of 2)1973Mammogram for age 40-Colonoscopy through age Lipids for age 45-Pneumococcal series for age 50+ (1 of 1 - PCV)2004RSV vaccine for adults or (1 - Risk 50-74 years 1- dose series)2004DEXA/DXA scan for age 65+10/16/2019Medicare Wellness for age 65+10/16/2019COVID-19 vaccine series (3 - Pfizer risk series)07/21/2020 06/23/2020, 06/02/2020Influenza Vaccine (#1)2024Hepatitis B series for 19+ Aged OutNo longer eligible based on patient's age to complete this topic Procedures Procedure NamePriorityDate/TimeAssociated DiagnosisCommentsCLOSTRIDIOIDES DIFFICILE TOXIN DADOthlimo01/29/2025 11:15 AM CDT Diarrhea, unspecified type PANCREATIC ELASTASE DDHOXHqgtift16/29/2025 11:15 AM CDT Diarrhea, unspecified type CALPROTECTIN IBLPWEodsyks04/29/2025 11:15 AM CDT Diarrhea, unspecified type CRYPTOSPORIDIUM GIARDIA RAPID TBYWMQWQeixwun47/29/2025 11:15 AM CDT Diarrhea, unspecified type from Last 3 Months Results * CRYPTOSPORIDIUM GIARDIA RAPID ANTIGEN (12/19/2024 11:15 AM CDT)ComponentValue Ref RangeTest MethodAnalysis TimePerformed AtPathologist SignatureGIARDIA AND CRYPTOSPORIDIUM ANTIGEN PANELSEE NOTE12/20/2024 2:30 PM CDT[facility] Comment: ??GIARDIA AG, EIA, STOOL ?Micro Number: ?[id number] ??Test Status: ? Final ??Specimen Source: ?? Stool ??Specimen Quality: ??Adequate ??Giardia Result 1: ??Not Detected ??Reference Range: ?? Not Detected ? NOTE: Due to intermittent shedding, one negative ? sample does not necessarily rule out the presence ? of a parasitic infection. GIARDIA AND CRYPTOSPORIDIUM ANTIGEN PANELSEE NOTE12/20/2024 2:30 PM CDTQUEST DIAGNOSTICSComment: ??CRYPTOSPORIDIUM ANTIGEN, EIA ?Micro Number: ?[id number] ??Test Status: ? Final ??Specimen Source: ?? [...] ProviderResult TypeResult StatusMarquinton Valiente MDMICROBIOLOGY Final ResultPerforming OrganizationAddressCity/State/[facility] CodePhone Number [facility] [address] [place] [address], * CALPROTECTIN FECAL (12/19/2024 11:15 AM CDT)ComponentValueRef RangeTest Method Analysis TimePerformed AtPathologist SignatureCALPROTECTIN, HZOST14qok/g 12/24/2024 1:49 AM CDTQUEST DIAGNOSTICSComment: ?Reference Range: [...] CDT Narrative Authorizing ProviderResult TypeResult StatusPhilip Valiente MDSEND OUTSFinal ResultPerforming OrganizationAddressty/[facility] [address] [facility] CodePhone Number [facility] [address] [address], * PANCREATIC ELASTASE FECAL (12/19/2024 11:15 AM [...] AM CDT Narrative Authorizing ProviderResult TypeResult StatusMarquinton Uli Jeremiaschelsea MDMICROBIOLOGY Final ResultPerforming OrganizationAddressCity/State/ZIP CodePhone Number [facility] [address] [place] [address], * CLOSTRIDIOIDES DIFFICILE TOXIN PCR (12/19/2024 11:15 AM CDT)ComponentValueRef RangeTest MethodAnalysis TimePerformed AtPathologist SignatureCLOSTRIDIUM DIFFICILE TOXIN/GDH W/REFL TO PCRSEE NOTE12/20/2024 3:09 PM CDTQUEST DIAGNOSTICSComment: ??CLOSTRIDIUM DIFFICILE TOXIN/GDH W/REFL TO PCR ?Micro Number: ?[id number] ??Test Status: ? Final ??Specimen Source: ?? Stool ??Specimen Quality: ??Adequate ??GDH Antigen: ? Not Detected ??Toxin A and B: ? Not Detected ??COMMENT: ? No toxigenic C. difficile detected ? For additional information, please refer to ? http://education.Mov[employer].com/faq/VXB437 ? (This link is being provided for ? informational/educational purposes only.) Specimen (Source)Anatomical Location / LateralityCollection Method / Volume Collection TimeReceived TimeStoolSTOOL SPECIMEN / UnknownNon-Blood / Unknown 12/19/2024 11:15 AM CDT12/19/2024 11:15 AM CDT Narrative Authorizing ProviderResult TypeResult StatusMarquinton Uli Valiente MDMICROBIOLOGY Final ResultPerforming OrganizationAddressCity/State/ZIP CodePhone Number [facility] [address] [address], [place] [phone] from Last [address] [place] [address] Care Teams Team MemberRelationshipSpecialtyStart DateEnd Date Monica Torres PA-C [address] [place] [address] PCP - GeneralEmergency Medicine05/03/21
--- NOTE | 2025-03-17 20:28 | ED.ARRPALP ---
HPI - Arrhythmia/Palpitations General Time Seen by Provider: 20:28 Date Seen: 03/17/25 Chief Complaint: Arrhythmia/Palpitations Stated Complaint: Elevated heartrate Time Seen by Provider: 03/17/25 20:26 Source: patient and RN notes reviewed Mode of arrival: ambulatory Limitations: no limitations History of Present Illness HPI narrative: This 69-year-old female is returning who with sense of irregular heartbeat and palpitations. She came in with chest pain with atrial fibrillation with RVR yesterday, heart rate was a lot higher. She had cardioversion and was discharged last night in normal sinus rhythm, required 2 shocks at 200 joules to sustain normal sinus rhythm. She did start the Eliquis, she also started the metoprolol. Her metoprolol as 25 mg b.i.d.. She did take her night dose. She notes she does not have the chest pain like she did last night, that is gone. She could just feel her heart beating fast and irregular. No shortness of breath. She notes she does drink moderate alcohol but has not had any in the last few days. Her troponin I was elevated at 0.47 last night, 2 hour was the same at 0.46 and she was felt to be stable to discharge to home. This is her 1st episode of atrial fibrillation starting last night. Related Data Home Medications ?Medication ?Instructions ?Recorded ?Confirmed ascorbic acid (vitamin C) 500 mg mg PO QDAY 06/24/22 01/04/25 capsule cholecalciferol (vitamin D3) 50 50 mcg PO QDAY 06/24/22 01/04/25 mcg (2,000 unit) capsule ibuprofen 200 mg capsule 400 mg PO Q8H PRN 06/24/22 01/04/25 calcium carbonate (Calcium 600) 600 mg PO BID 07/14/22 01/04/25 aspirin 81 mg tablet,delayed 81 mg PO QDAY 10/14/22 01/04/25 release calcium polycarbophil 625 mg 1,250 mg PO QDAY 01/04/25 01/04/25 tablet (FiberCon) Previous Rx's ?Medication ?Instructions ?Recorded atorvastatin 20 mg tablet 20 mg PO QHS #90 tabs 06/15/24 sertraline 100 mg tablet 100 mg PO DAILY #90 tabs 06/15/24 hydroxyurea 500 mg capsule (Hydrea) 500 mg PO QDAY #120 caps 01/04/25 apixaban 5 mg tablet (Eliquis) 5 mg PO BID #60 tabs 03/16/25 metoprolol tartrate 25 mg tablet 25 mg PO BID #60 tabs 03/16/25 Allergies Allergy/AdvReac Type Severity Reaction Status Date / Time No Known Allergies Allergy Unknown Verified 03/16/25 19:30 Review of Systems Status of ROS: Reports: 6 or more systems reviewed and unremarkable except as noted in History and below PFSH PFSH Medical History Community acquired pneumonia (~02/09/23) ?J18.9 - Pneumonia, unspecified organism (ICD-10) Acute renal insufficiency (~02/09/23) ?N28.9 - Disorder of kidney and ureter, unspecified (ICD-10) Diverticulitis ?K57.92 - Diverticulitis of intestine, part unspecified, without perforation or abscess without bleeding (ICD-10) Surgical History Hx of inguinal hernia surgery ?Z98.890 - Other specified postprocedural states (ICD-10) ?Z87.19 - Personal history of other diseases of the digestive system (ICD-10) History of colonoscopy ?Z98.890 - Other specified postprocedural states (ICD-10) Family History Father Colon cancer Prostate cancer Skin cancer Bladder cancer Mother Skin cancer Hawks cell carcinoma Brother Coronary artery disease Son Prostate cancer, Onset Age: 50 Social History Narrative: Former smoker. QUIT over 40 years ago . 2 Adult children ( hx of stroke)- Ubaldo. What is your current living situation?: I presently have a place to live Problems where you live: no known problems In the past 12 months, utilities in danger of being shut off: no In past 12 months, lack of transportation kept you from medical appts, meetings, work, or getting things needed for daily living: no In the past 12 mos, have been you worried that your food would run out before you had money to buy more?: never true In the past 12 mos, the food you bought just didn't last and you didn't have money to buy more?: never true Smoking Status: Former smoker Do you use any of these nicotine containing products: None Second hand tobacco smoke exposure: No How often do you have a drink containing alcohol: 2-3 times a week AUDIT-C Alcohol total score: 3 Non-prescribed substance use: denies use How often does anyone, including family, friends and others, physically hurt you: never How often does anyone, including family, friends and others, insult or talk down to you: never How often does anyone, including family, friends and others, threaten you with harm: never How often does anyone, including family, friends and others, scream or curse at you: never service: No Exam Const: Vital Signs, click to edit/add: Vital Signs - 24 hr 03/17/25 20:02 03/17/25 20:32 03/17/25 20:39 Temperature 97.9 F Pulse Rate 123 H Pulse Rate [Right Pulse Oximeter] 112 H Respiratory Rate 20 18 Blood Pressure 113/77 Blood Pressure [Ri ght Upper Arm] 130/81 Pulse Oximetry 97 96 97 Oxygen Delivery Me thod Room Air 03/17/25 21:03 03/17/25 21:26 03/17/25 21:32 Temperature Pulse Rate 84 77 84 Pulse Rate [Right Pulse Oximeter] Respiratory Rate 21 16 18 Blood Pressure 107/58 L 106/60 113/63 Blood Pressure [Ri ght Upper Arm] Pulse Oximetry 94 96 96 Oxygen Delivery Me thod This 69-year-old female is alert, interactive, no apparent distress lying in bed in exam room 8. Sclera clear, face atraumatic, able speak in complete sentences. Neck is supple comminuted giving stanchion. Lungs are clear, no wheezing crackles, no tachypnea, no accessory muscle use. CV is irregularly irregular, sounds fast at times. No murmur noted, normal S1-S2. Abdomen is soft, nontender, nondistended, no organomegaly. No lower extremity edema noted. Documenting provider has reviewed patient's vital signs: yes Course Course ED Course: Will have patient on cardiac monitoring and pulse oximetry to ensure no significant tachycardia or hypoxia. We have reviewed atrial fibrillation, need for rate control to prevent complications, need for anticoagulation to prevent stroke risk. We will see her EKG. Since she did not stay in this, unlikely if cardiology will have us attempt cardioversion again. Will get a portable chest x-ray to ensure no congestive changes. Will recheck her labs. Will do magnesium and thyroid has they were not obtained last night. Recheck her electrolytes and her renal function. Am going to give her 5 mg IV metoprolol for improved rate control. Reevaluation(s) Time of Reevaluation #1: 21:16 Reevaluation #1: Heart rate currently 114, IV metoprolol was given about 30 minutes ago. I am going to give her subsequent 25 mg oral metoprolol and 5 more mg IV metoprolol. Time of Reevaluation #2: 22:01 Reevaluation #2: Nursing staff noted that they started seeing P waves on her monitor. 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 Her troponin and her proBNP are much improved from last night. Her TSH is still pending but will allow her to discharge, she can follow up with Monica Torres in clinic and if abnormality, can be dealt with there. She is aware that she will need cardiology referral. She is stable for discharge at this time. She will stay on her Eliquis. We have discussed increasing her metoprolol to 50 b.i.d.. She should have enough to get her through until her visit next week with her primary. Vital Signs Vital signs: Initial Vital Signs Temperature 97.9 F 03/17/25 20:02 Temperature Source Temporal Artery Scan 03/17/25 20:02 Pulse Rate 112 H 03/17/25 20:02 Pulse Rhythm Irregular 03/17/25 20:02 Pulse Strength 3+ Normal 03/17/25 20:02 Respiratory Rate 20 03/17/25 20:02 Blood Pressure 130/81 03/17/25 20:02 Blood Pressure Mean 97 03/17/25 20:02 Blood Pressure Position Sitting 03/17/25 20:02 Pulse Oximetry 97 03/17/25 20:02 Oxygen Delivery Method Room Air 03/17/25 20:02 Vital Signs Temperature 97.9 F 03/17/25 20:02 Pulse Rate 112 H 03/17/25 20:02 Respiratory Rate 20 03/17/25 20:02 Blood Pressure 130/81 03/17/25 20:02 Pulse Oximetry 97 03/17/25 20:02 Oxygen Delivery Method Room Air 03/17/25 20:02 Temperature 97.9 F 03/17/25 20:02 Pulse Rate 84 03/17/25 21:32 Respiratory Rate 18 03/17/25 21:32 Blood Pressure 113/63 03/17/25 21:32 Pulse Oximetry 96 03/17/25 21:32 Oxygen Delivery Method Room Air 03/17/25 20:02 Medications Administered Medications: Discontinued Medications Generic Name Dose Route Start Last Admin Trade Name Freq PRN Reason Stop Dose Admin Metoprolol Tartrate 5 mg 03/17/25 20:39 03/17/25 20:46 Metoprolol Tartrate 1 Mg/Ml Inj IVP 03/17/25 20:40 5 mg ONCE ONE Administration Metoprolol Tartrate 25 mg 03/17/25 21:16 03/17/25 21:24 Metoprolol Tartrate 25 Mg Tablet PO 03/17/25 21:17 25 mg ONCE ONE Administration MDM - Arrhythmia/Palpitations Lab Data Attestation: I reviewed the patient's lab results. Labs: Lab Results 03/17/25 Range/Units 20:41 Sodium 133 L (135-149) mmol/L Potassium 3.7 (3.6-5.1) mmol/L Chloride 104 (96-114) mmol/L Carbon Dioxide 20 (20-32) mmol/L Anion Gap 9 (7-15) mEq/L BUN 9 (7-30) mg/dL Creatinine 0.5 (0.5-1.5) mg/dL Estimated Creat Clear 43.86 Estimated GFR 101 ml/min Glucose 130 H (60-115) mg/dL Calcium 9.1 (8.4-10.6) mg/dL Magnesium 2.2 (1.5-2.6) mg/dL Troponin I 0.17 H* (0.01-0.04) ng/mL NT-Pro-B Natriuret Pep 4840 H (See Note) pg/mL Imaging Data Chest x-ray: Attestation: I have reviewed the pertinent imaging results. My impression: Do not appreciate any congestive heart failure my preliminary review. Radiologist's impression: Patient: RONAL SHAFFER Facility:?[facility] Patient ID:?[id number] Site Patient ID:?[id number]. Site :?[id number] Study:?XRay-Chest 1V-03/17/2025 8:56:54 PM Ordering Physician:Román Rossi Final Report: INDICATION: Atrial fibrillation with RVR. TECHNIQUE: Chest 1 views. COMPARISON: 03/16/2025. FINDINGS: Cardiovasculature and mediastinum: Heart size is normal. Unremarkable mediastinum. Lungs and pleural spaces: Lungs are clear. No sign of infiltrate or mass. No sign of pleural effusion. No pneumothorax. Bones and soft tissues: No significant findings. IMPRESSION: Negative chest. Dictated by Neo Augustin MD @ 03/17/2025 10:00:46 PM (Electronic Signature) ECG Data Attestation: I personally reviewed and interpreted this ECG as follows: (Atrial fibrillation, 99 beats per minute, T-wave abnormality in inferior and lateral precordial leads, no ST segment changes that I appreciate.) ECG interpretation date: 03/17/25 ECG interpretation time: 20:46 Prior ECG tracings: available for review (Similar T-wave abnormality even when she was in sinus rhythm at discharge last night on EKG from 8:55 p.m..) Interpretation: Repeat at 9:40 p.m. shows sinus rhythm with sinus arrhythmia, frequent PACs. Ongoing inferolateral flipped T-waves with out significant ST segment change. Critical Care Time Critical Care Time Critical Care Time: Yes Attestation: The patient required my highest level preparedness to intervene emergently and I personally spent this critical care time directly and personally managing the patient. This critical care time included: Obtaining a history; Examining the patient; Pulse oximetry; Ordering and reviewing of studies; Arranging urgent treatment with development of a management plan; Evaluation of patients response to treatment; Frequent reassessment discussions with other providers. This critical care time was performed to assess and manage the high probability of imminent life-threatening deterioration that could result in multiorgan failure. It was exclusive of separate billable procedures and treating other patients and teaching time. Total Critical Care Time in Minutes: 30 Discharge Plan Discharge Clinical Impression: Atrial fibrillation with rapid ventricular response Patient Disposition: Home, Self-Care Condition: Stable Instructions: A-fib (Atrial Fibrillation) (ED) Additional Instructions: Increase your metoprolol to 50 mg twice a day, your given extra here tonight. This will be 2 tablets of the 25 mg twice a day. Stay on the Eliquis and make sure you take it twice a day. Need to keep your follow-up in clinic with your primary, she will need to put a referral in to Cardiology. If you have further issues in the interim, feel your atrial fibrillation is active and having an elevated heart rate, recommend return to the ER. Do recommend minimization of alcohol as this can affect cardiac function. Activity Level: Activity as Tolerated Prescriptions: No Action cholecalciferol (vitamin D3) 50 mcg (2,000 unit) capsule 50 mcg PO QDAY ibuprofen 200 mg capsule 400 mg PO Q8H PRN ascorbic acid (vitamin C) 500 mg capsule PO QDAY calcium carbonate [Calcium 600] 600 mg calcium (1,500 mg) tablet 600 mg PO BID calcium polycarbophil [FiberCon] 625 mg tablet 1,250 mg PO QDAY hydroxyurea [Hydrea] 500 mg capsule 500 mg PO QDAY Qty: 120 3RF aspirin 81 mg tablet,delayed release (DR/EC) 81 mg PO QDAY atorvastatin 20 mg tablet 20 mg PO QHS Qty: 90 3RF sertraline 100 mg tablet 100 mg PO DAILY Qty: 90 3RF Eliquis 5 mg tablet 5 mg PO BID Qty: 60 2RF metoprolol tartrate 25 mg tablet 25 mg PO BID Qty: 60 2RF Follow Up/Referrals: Monica Torres PA-C [Primary Care Provider, Family Practice] Stand Alone Forms: [employer] Info Instructions
--- NOTE | 2025-03-17 20:39 | CRLHL7_ITS ---
For Patients: As a result of the Century Cures Act, medical imaging exams and procedure reports are released immediately into your electronic medical record. You may view this report before your referring provider. If you have questions, please contact your health care provider. INDICATION: Atrial fibrillation with RVR. TECHNIQUE: Chest 1 views. COMPARISON: 03/16/2025. FINDINGS: Cardiovasculature and mediastinum: Heart size is normal. Unremarkable mediastinum. Lungs and pleural spaces: Lungs are clear. No sign of infiltrate or mass. No sign of pleural effusion. No pneumothorax. Bones and soft tissues: No significant findings. IMPRESSION: Negative chest. Dictated by Neo Augustin MD @ 03/17/2025 10:00:46 PM (Electronically Signed)
[2025-03-17] MEDS: METOPROLOL TARTRATE 1 MG/ML inj 5 MG IVP (20:46)
[2025-03-17 21:04] LABS: Chloride* 104 mmol/L (96-114); Potassium* 3.7 mmol/L (3.6-5.1); Sodium* 133 mmol/L (135-149)
[2025-03-17 21:07] LABS: Anion Gap 9 mEq/L (7-15); Blood Urea Nitrogen* 9 mg/dL (7-30); Calcium* 9.1 mg/dL (8.4-10.6); Carbon Dioxide* 20 mmol/L (20-32); Creatinine* 0.5 mg/dL (0.5-1.5); Est. Creatinine Clearance* 43.86; Estimated Glomerular Filt Rate 101 ml/min; Glucose* 130 mg/dL (60-115)
[2025-03-17] MEDS: METOPROLOL TARTRATE 25 MG TABLET PO (21:24)
[2025-03-17 21:32] LABS: NT Pro B Type NatriureticPept* 4840 pg/mL (See Note)
[2025-03-17 23:21] LABS: TSH With Reflex to FT4* 5.090 uIU/mL (0.270-4.200)
[2025-03-18 01:36] LABS: Free T4 Free Thyroxine* 1.27 ng/dL (0.70-1.85)
== END 2025-03-17 23:10 | disposition home or self-care (01) ==
PROVIDERS: Emergency Provider Family Medicine; PCP Physician Assistant Medical
DX: I48.20 Chronic atrial fibrillation, unspecified (principal)
CPT/HCPCS: 36415; 71045; 80048; 83735; 83880; 84439; 84443; 84484; 93005; 94761; 99284; 99291; A9270